=== PATIENT | female | born 1990 | race American Indian/Alaskan Native ===

== ENCOUNTER 2016-08-05 00:25 | Inpatient (IN) | payer MEDICAID ==
--- NOTE | 2016-08-05 01:43 | History and Physical Report ---
History of Present Illness Date of examination: 08/05/16 Date of admission: 08/05/16 01:21 Chief complaint: Painful contractions History of present illness: 26-year-old at 38+5 weeks gestation presents in active labor, she has oral history of care with Dr. Navarrete. Patients history is inconsistent, she claims Dr. Navarrete no longer accepts Medicaid and he delivers at [place]. She however claims to still see him in clinic and was seen last week. Her uncle also claims she was asked by [facility] to present here as this is near her home. In triage, her blood pressure is elevated at 140s to 160s over 90's diastolic. She denies headache, scotomata or epigastric pain. She claims her blood pressures were completely normal during her care except for the last visit when he was elevated. 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 denies: smoking, alcohol abuse, prescription drug abuse, IV drug use - Obstetrical History Expected Date of Delivery: 08/14/16 Actual Gestation: 38 Week(s) 5 Day(s) : 1 Para: 0 Medications and Allergies Allergies Allergy/AdvReac Type Severity Reaction Status Date / Time No Known Allergies Allergy Verified 10/28/13 00:06 Home Medications Medication Instructions Recorded Confirmed Last Taken Type No Known Home Medications [No 10/28/13 10/28/13 Unknown History Reported Home Medications] Review of Systems Constitutional: no fever, no chills Eyes: no diplopia Cardiovascular: high blood pressure, no chest pain, no orthopnea, no palpitations, no rapid/irregular heart beat, no edema, no syncope, no dyspnea on exertion Respiratory: no shortness of breath, no dyspnea on exertion Gastrointestinal: abdominal pain, no nausea, no vomiting Genitourinary: no vaginal bleeding, no leakage of fluid - Vital Signs Vital signs: Vital Signs Temp BP 99.8 F H 162/112 08/05/16 00:50 08/05/16 00:50 Temp Pulse Resp BP Pulse Ox 99.8 F H 104 H 166/96 82 L 08/05/16 00:50 08/05/16 01:31 08/05/16 01:31 08/05/16 01:07 - Physical Exam Cardiovascular: Regular rate, Normal S1, Normal S2 Lungs: Positive: Clear to auscultation, Normal air movement Abdomen: Positive: normal appearance, soft. Negative: distention, tenderness, guarding, rigidity Genitourinary (Female): Positive: normal external genitalia Uterus: Positive: enlarged (EFW ~ 3500) Extremities: Positive: normal - Obstetrical FHR: category 1 Cervical Dilatation: 4 (per RN exam) Cervical Effacement Percentage: 90 station: -1 Results All other labs normal. Assessment and Plan A: 26-year-old at 38+5 in active labour -Elevated BP ?Pre-E -Cat 1 tracing P: -Admit -Antihypertensives -Magnesium per protocol -Routine labs -Epidural when necessary -GBS prophylaxis -?Obtain records from primary OBGYN -Expectant management for now - Patient Problems (1) 38 weeks gestation of Current Visit: Yes Status: Acute (2) Active labor at term Current Visit: Yes Status: Acute (3) Elevated blood pressure affecting in third trimester, antepartum Current Visit: Yes Status: Acute
[2016-08-05] MEDS ORDERED: BRETHINE SUB-Q PRN (01:49)
[2016-08-05] MEDS ORDERED: ePHEDrine SULFATE IV PRN ×2 (01:49→09:43)
[2016-08-05] MEDS ORDERED: ZOFRAN IV PRN ×2 (01:49→14:49)
[2016-08-05] MEDS ORDERED: BRETHINE IVP PRN (01:49)
[2016-08-05] MEDS ORDERED: POLYCILLIN/NS 2 GM/100 ML 100 ML IV ONE (01:49)
[2016-08-05] MEDS ORDERED: XYLOCAINE 2% INFILTRATI ONE (01:49)
[2016-08-05] MEDS ORDERED: SUBLIMAZE IV PRN (01:49)
[2016-08-05] MEDS ORDERED: MINERAL OIL PO PRN (01:49)
[2016-08-05] MEDS ORDERED: MAGNESIUM SULFATE 4GM/100ML 100 ML IV ONE (01:52)
[2016-08-05] MEDS ORDERED: APRESOLINE IV PRN (01:52)
[2016-08-05] MEDS ORDERED: NORMODYNE IV PRN (01:52)
[2016-08-05] MEDS ORDERED: MAGNESIUM SULFATE 40GM/1000ML 1,000 ML IV NR (02:00)
[2016-08-05] MEDS ORDERED: PITOCin/NS 20 UNIT/1000ML DRIP 1,000 ML IV SCH ×2 (02:00→15:00)
[2016-08-05] MEDS ORDERED: PITOCin/NS 30 UNIT/500ML 500 ML IV SCH (02:00)
[2016-08-05] MEDS ORDERED: LACTATED RINGERS 1,000 ML IV SCH ×2 (02:00)
[2016-08-05 04:27] LABS: Hematocrit 41.1 % (30.3-42.9); Hemoglobin 13.6 gm/dl (10.1-14.3); Mean Corpuscular HGB Conc 33 % (30-34); Mean Corpuscular Hemoglobin 32 pg (28-32); Mean Corpuscular Volume 96 fl (79-97); Platelet Count 136 K/mm3 (140-440); Red Blood Count 4.26 M/mm3 (3.65-5.03); Red Cell Distribution Width 13.9 % (13.2-15.2)
[2016-08-05] MEDS: NORMODYNE PO SCH ×2 (04:55→10:10)
[2016-08-05 05:12] LABS: Alanine Aminotransferase 41 units/L (7-56); Albumin 3.1 g/dL (3.9-5); Albumin/Globulin Ratio 0.9 %; Alkaline Phosphatase 204 units/L (35-129); Bilirubin,Total < 0.2 mg/dL (0.1-1.2); Blood Urea Nitrogen 12 mg/dL (7-17); Calcium 8.6 mg/dL (8.4-10.2); Carbon Dioxide 16 mmol/L (22-30); Chloride 102.5 mmol/L (98-107); Glucose 132 mg/dL (65-100); HIV-1 Antigen p24 Non React (Non React); HIVR-1/2 Ab Non React (Non React); Potassium 3.8 mmol/L (3.6-5.0); Sodium 134 mmol/L (137-145); Total Protein 6.5 g/dL (6.3-8.2)
[2016-08-05 05:22] LABS: Anion Gap 19 mmol/L; Bilirubin,Direct < 0.2 mg/dL (0-0.2)
[2016-08-05] MEDS: POLYCILLIN/NS 1 GM/50 ML 50 ML IV SCH ×2 (07:26→11:13)
[2016-08-05 07:54] LABS: Urine Drugs of Abuse Note Disclamer
[2016-08-05 08:32] LABS: Bilirubin,Urine NEG (Negative); Blood,Urine NEG (Negative); Ketones,Urine NEG (Negative); Leukocyte Esterase,Urine NEG (Negative); Mucus,Urine FEW /HPF; Nitrite,Urine NEG (Negative); Protein,Urine <15 mg/dL mg/dL (Negative); Urobilinogen,Urine < 2.0 mg/dL (<2.0)
[2016-08-05] MEDS ORDERED: ePHEDrine SULFATE ONE (08:46)
--- NOTE | 2016-08-05 09:29 | Progress Note ---
Assessment and Plan A: 26-year-old at 38+5 in active labour -Elevated BP ?Pre-E -Cat 1 tracing P: -Start Pitocin -Repeat mag level at ~ 12, consider bolus if subtherapeutic -Continue present care -Anticipate - Patient Problems (1) 38 weeks gestation of Current Visit: Yes Status: Acute (2) Active labor at term Current Visit: Yes Status: Acute (3) Elevated blood pressure affecting in third trimester, antepartum Current Visit: Yes Status: Acute Subjective - Subjective Date of service: 08/05/16 Principal diagnosis: at 38+6 wks, Elevated BP, Active labour Interval history: no new issues, wants epidural Blood Pressure has remained less than severe levels. Mag level at 3.5, but was obtained ~ 2 hours after bolus No Signs or symptoms of preeclampsia Patient reports: new complaints, movement normal, contractions, no loss of fluid, no vaginal bleeding Objective - Vital Signs Vital Signs: Vital Signs - 12hr 08/05/16 08/05/16 08/05/16 00:50 01:00 01:01 Temperature 99.8 F H Pulse Rate 97 H 104 H Respiratory Rate Blood Pressure 148/99 Blood Pressure 162/112 [Left Arm] O2 Sat by Pulse 99 Oximetry 08/05/16 08/05/16 08/05/16 01:05 01:07 01:12 Temperature Pulse Rate 104 H 58 L 93 H Respiratory Rate Blood Pressure 157/93 Blood Pressure [Left Arm] O2 Sat by Pulse 99 82 L Oximetry 08/05/16 08/05/16 08/05/16 01:21 01:31 01:42 Temperature Pulse Rate 96 H 104 H 101 H Respiratory Rate Blood Pressure 150/87 166/96 144/89 Blood Pressure [Left Arm] O2 Sat by Pulse Oximetry 08/05/16 08/05/16 08/05/16 02:23 02:24 02:27 Temperature Pulse Rate 101 H 99 H 98 H Respiratory Rate Blood Pressure 145/94 Blood Pressure [Left Arm] O2 Sat by Pulse 99 98 Oximetry 08/05/16 08/05/16 08/05/16 02:33 02:37 02:43 Temperature Pulse Rate 97 H 97 H 97 H Respiratory Rate Blood Pressure Blood Pressure [Left Arm] O2 Sat by Pulse 98 96 99 Oximetry 08/05/16 08/05/16 08/05/16 02:47 02:50 02:53 Temperature 97.7 F Pulse Rate 69 93 H Respiratory Rate Blood Pressure Blood Pressure [Left Arm] O2 Sat by Pulse 98 97 Oximetry 08/05/16 08/05/16 08/05/16 04:15 04:46 05:08 Temperature Pulse Rate 92 H 98 H 86 Respiratory Rate Blood Pressure 149/86 139/94 Blood Pressure [Left Arm] O2 Sat by Pulse 99 Oximetry 08/05/16 08/05/16 08/05/16 05:13 05:15 05:18 Temperature Pulse Rate 94 H 92 H 97 H Respiratory Rate Blood Pressure 141/89 Blood Pressure [Left Arm] O2 Sat by Pulse 98 98 Oximetry 08/05/16 08/05/16 08/05/16 05:23 05:28 05:33 Temperature Pulse Rate 85 88 89 Respiratory Rate Blood Pressure Blood Pressure [Left Arm] O2 Sat by Pulse 97 97 97 Oximetry 08/05/16 08/05/16 08/05/16 05:38 05:43 05:46 Temperature Pulse Rate 85 87 82 Respiratory Rate Blood Pressure 140/84 Blood Pressure [Left Arm] O2 Sat by Pulse 99 100 Oximetry 08/05/16 08/05/16 08/05/16 05:48 05:53 05:58 Temperature Pulse Rate 82 81 95 H Respiratory Rate Blood Pressure Blood Pressure [Left Arm] O2 Sat by Pulse 100 100 100 Oximetry 08/05/16 08/05/16 08/05/16 06:03 06:08 06:13 Temperature Pulse Rate 102 H 82 91 H Respiratory Rate Blood Pressure Blood Pressure [Left Arm] O2 Sat by Pulse 100 99 97 Oximetry 08/05/16 08/05/16 08/05/16 06:15 06:18 06:23 Temperature Pulse Rate 81 76 80 Respiratory Rate Blood Pressure 140/84 Blood Pressure [Left Arm] O2 Sat by Pulse 100 98 Oximetry 08/05/16 08/05/16 08/05/16 06:28 06:33 06:38 Temperature Pulse Rate 80 74 82 Respiratory Rate Blood Pressure Blood Pressure [Left Arm] O2 Sat by Pulse 100 98 100 Oximetry 08/05/16 08/05/16 08/05/16 06:43 06:45 06:48 Temperature Pulse Rate 78 83 91 H Respiratory Rate Blood Pressure 135/75 Blood Pressure [Left Arm] O2 Sat by Pulse 98 97 Oximetry 08/05/16 08/05/16 08/05/16 06:50 06:53 06:58 Temperature Pulse Rate 33 L 80 82 Respiratory Rate Blood Pressure Blood Pressure [Left Arm] O2 Sat by Pulse 81 L 98 98 Oximetry 08/05/16 08/05/16 08/05/16 07:02 07:03 07:08 Temperature Pulse Rate 85 83 89 Respiratory Rate Blood Pressure Blood Pressure [Left Arm] O2 Sat by Pulse 93 95 97 Oximetry 08/05/16 08/05/16 08/05/16 07:13 07:14 07:15 Temperature 97.2 F L Pulse Rate 88 89 Respiratory 16 Rate Blood Pressure Blood Pressure [Left Arm] O2 Sat by Pulse 98 90 Oximetry 08/05/16 08/05/16 08/05/16 07:16 07:19 07:20 Temperature Pulse Rate 91 H 81 83 Respiratory Rate Blood Pressure 173/105 145/91 Blood Pressure [Left Arm] O2 Sat by Pulse 100 Oximetry 08/05/16 08/05/16 08/05/16 07:24 07:29 07:34 Temperature Pulse Rate 87 84 83 Respiratory Rate Blood Pressure Blood Pressure [Left Arm] O2 Sat by Pulse 100 100 100 Oximetry 08/05/16 08/05/16 08/05/16 07:39 07:44 07:45 Temperature Pulse Rate 86 87 84 Respiratory Rate Blood Pressure 140/88 Blood Pressure [Left Arm] O2 Sat by Pulse 100 100 Oximetry 08/05/16 08/05/16 08/05/16 07:49 07:54 07:59 Temperature Pulse Rate 80 85 85 Respiratory Rate Blood Pressure Blood Pressure [Left Arm] O2 Sat by Pulse 100 100 100 Oximetry 08/05/16 08/05/16 08/05/16 08:04 08:09 08:14 Temperature Pulse Rate 84 82 91 H Respiratory Rate Blood Pressure Blood Pressure [Left Arm] O2 Sat by Pulse 100 100 100 Oximetry 08/05/16 08/05/16 08/05/16 08:15 08:19 08:24 Temperature Pulse Rate 87 84 81 Respiratory Rate Blood Pressure 145/91 Blood Pressure [Left Arm] O2 Sat by Pulse 100 100 Oximetry 08/05/16 08/05/16 08/05/16 08:28 08:29 08:33 Temperature Pulse Rate 68 Respiratory Rate Blood Pressure Blood Pressure [Left Arm] O2 Sat by Pulse 85 90 79 L Oximetry 08/05/16 08/05/16 08/05/16 08:34 08:39 08:45 Temperature Pulse Rate 90 61 87 Respiratory Rate Blood Pressure 149/99 Blood Pressure [Left Arm] O2 Sat by Pulse 84 95 Oximetry 08/05/16 08/05/16 08/05/16 08:55 09:00 09:05 Temperature Pulse Rate 87 102 H 87 Respiratory Rate Blood Pressure 167/95 Blood Pressure [Left Arm] O2 Sat by Pulse 100 100 100 Oximetry 08/05/16 08/05/16 08/05/16 09:06 09:08 09:10 Temperature Pulse Rate 89 85 87 Respiratory Rate Blood Pressure 167/95 150/95 150/94 Blood Pressure [Left Arm] O2 Sat by Pulse 100 Oximetry 08/05/16 08/05/16 08/05/16 09:11 09:14 09:15 Temperature Pulse Rate 81 81 84 Respiratory Rate Blood Pressure 149/93 Blood Pressure [Left Arm] O2 Sat by Pulse 75 L 100 Oximetry 08/05/16 08/05/16 08/05/16 09:16 09:18 09:20 Temperature Pulse Rate 88 81 86 Respiratory Rate Blood Pressure 143/90 148/90 144/89 Blood Pressure [Left Arm] O2 Sat by Pulse 100 Oximetry 08/05/16 09:25 Temperature Pulse Rate 90 Respiratory Rate Blood Pressure Blood Pressure [Left Arm] O2 Sat by Pulse 100 Oximetry - Exam FHR: category 1 Cervical Dilatation: 4 (per RN) - Labs Labs: Abnormal Labs 08/05/16 08/05/16 08/05/16 03:00 03:00 06:48 Plt Count 136 L Sodium 134 L Carbon Dioxide 16 L Creatinine 0.4 L Glucose 132 H Magnesium 3.5 H AST 44 H Alkaline Phosphatase 204 H Albumin 3.1 L Laboratory Results - last 24 hr 08/05/16 08/05/16 08/05/16 01:52 03:00 03:00 WBC 9.0 RBC 4.26 Hgb 13.6 Hct 41.1 MCV 96 MCH 32 MCHC 33 RDW 13.9 Plt Count 136 L Sodium Potassium Chloride Carbon Dioxide Anion Gap BUN Creatinine Estimated GFR BUN/Creatinine Ratio Glucose Calcium Magnesium Total Bilirubin Direct Bilirubin Indirect Bilirubin AST ALT Alkaline Phosphatase Total Protein Albumin Albumin/Globulin Ratio Urine Color Urine Turbidity Urine pH Ur Specific [place] Urine Protein Urine Glucose (UA) Urine Ketones Urine Blood Urine Nitrite Urine Bilirubin Urine Urobilinogen Ur Leukocyte Esterase Urine WBC (Auto) Urine RBC (Auto) U Epithel Cells (Auto) Urine Mucus Urine Opiates Screen Presumptive negative Urine Methadone Screen Presumptive negative Ur Barbiturates Screen Presumptive negative Ur Phencyclidine Scrn Presumptive negative Ur Amphetamines Screen Presumptive negative U Benzodiazepines Scrn Presumptive negative Urine Cocaine Screen Presumptive negative U Marijuana (THC) Screen Presumptive negative Drugs of Abuse Note Disclamer Hep Bs Antigen Hepatitis C Antibody HIV 1&2 Antibody Rapid HIV P24 Antigen Rubella IgG Antibody Blood Type O POSITIVE Antibody Screen Negative 08/05/16 08/05/16 08/05/16 03:00 03:00 03:00 WBC RBC Hgb Hct MCV MCH MCHC RDW Plt Count Sodium 134 L Potassium 3.8 Chloride 102.5 Carbon Dioxide 16 L Anion Gap 19 BUN 12 Creatinine 0.4 L Estimated GFR > 60 BUN/Creatinine Ratio 30.00 Glucose 132 H Calcium 8.6 Magnesium Total Bilirubin < 0.2 Direct Bilirubin < 0.2 Indirect Bilirubin 0.0 AST 44 H ALT 41 Alkaline Phosphatase 204 H Total Protein 6.5 Albumin 3.1 L Albumin/Globulin Ratio 0.9 Urine Color Urine Turbidity Urine pH Ur Specific [place] Urine Protein Urine Glucose (UA) Urine Ketones Urine Blood Urine Nitrite Urine Bilirubin Urine Urobilinogen Ur Leukocyte Esterase Urine WBC (Auto) Urine RBC (Auto) U Epithel Cells (Auto) Urine Mucus Urine Opiates Screen Urine Methadone Screen Ur Barbiturates Screen Ur Phencyclidine Scrn Ur Amphetamines Screen U Benzodiazepines Scrn Urine Cocaine Screen U Marijuana (THC) Screen Drugs of Abuse Note Hep Bs Antigen Non-reactive Hepatitis C Antibody Non-reactive HIV 1&2 Antibody Rapid HIV P24 Antigen Rubella IgG Antibody Immune Blood Type Antibody Screen 08/05/16 08/05/16 08/05/16 03:00 06:48 07:30 WBC RBC Hgb Hct MCV MCH MCHC RDW Plt Count Sodium Potassium Chloride Carbon Dioxide Anion Gap BUN Creatinine Estimated GFR BUN/Creatinine Ratio Glucose Calcium Magnesium 3.5 H Total Bilirubin Direct Bilirubin Indirect Bilirubin AST ALT Alkaline Phosphatase Total Protein Albumin Albumin/Globulin Ratio Urine Color Yellow Urine Turbidity Clear Urine pH 5.0 Ur Specific [place] 1.029 Urine Protein <15 mg/dl Urine Glucose (UA) Neg Urine Ketones Neg Urine Blood Neg Urine Nitrite Neg Urine Bilirubin Neg Urine Urobilinogen < 2.0 Ur Leukocyte Esterase Neg Urine WBC (Auto) 1.0 Urine RBC (Auto) 1.0 U Epithel Cells (Auto) 1.0 Urine Mucus Few Urine Opiates Screen Urine Methadone Screen Ur Barbiturates Screen Ur Phencyclidine Scrn Ur Amphetamines Screen U Benzodiazepines Scrn Urine Cocaine Screen U Marijuana (THC) Screen Drugs of Abuse Note Hep Bs Antigen Hepatitis C Antibody HIV 1&2 Antibody Rapid Non react HIV P24 Antigen Non react Rubella IgG Antibody Blood Type Antibody Screen
[2016-08-05] MEDS ORDERED: fentaNYL-BUPIV 2 MCG/ML-0.125% 100 ML EPIDURAL ONE (09:38)
[2016-08-05] MEDS ORDERED: NARCAN 2 MG/2 ML IV PRN (09:43)
--- NOTE | 2016-08-05 09:45 | Anesthesia Consultation ---
Anesthesia Consult and Med Hx Date of service: 08/05/16 - Airway Anesthetic Teeth Evaluation: Good ROM Head & Neck: Adequate Mental/Hyoid Distance: Adequate Intubation Access Assessment: Probably Good - Pre-Operative Health Status ASA Pre-Surgery Classification: ASA3, Emergency Proposed Anesthetic Plan: Epidural, Spinal - Pre-Anesthesia Comment Pre-Anesthesia Comments: PIH - Pulmonary Hx Asthma: No - Cardiovascular System Hx Hypertension: No (PIH on mag) - Central Nervous System Hx Seizures: No Hx Psychiatric Problems: No - Endocrine Hx Renal Disease: No Hx Hypothyroidism: No Hx Hyperthyroidism: No - Hematic Hx Anemia: No Hx Sickle Cell Disease: No - Other Systems Hx Alcohol Use: No Hx Substance Use: No
[2016-08-05] MEDS ORDERED: fentaNYL-BUPIV 2 MCG/ML-0.125% 100 ML EPIDURAL SCH (10:00)
[2016-08-05] MEDS ORDERED: TYLENOL PO ONE (10:02)
--- NOTE | 2016-08-05 12:15 | Progress Note ---
Assessment and Plan A: 26-year-old at 38+5 in active labour -Elevated BP ?Pre-E -Cat 1 tracing P: -Continue present care -Anticipate - Patient Problems (1) 38 weeks gestation of Current Visit: Yes Status: Acute (2) Active labor at term Current Visit: Yes Status: Acute (3) Elevated blood pressure affecting in third trimester, antepartum Current Visit: Yes Status: Acute Subjective - Subjective Date of service: 08/05/16 Principal diagnosis: at 38+6 wks, Elevated BP, Active labour Interval history: Presently on Pit @ 12 mu/min Having occasional early like variable decels +mod variability Patient reports: new complaints, loss of fluid, movement normal, contractions, no vaginal bleeding Objective - Vital Signs Vital Signs: Vital Signs - 12hr 08/05/16 08/05/16 08/05/16 00:50 01:00 01:01 Temperature 99.8 F H Pulse Rate 97 H 104 H Respiratory Rate Blood Pressure 148/99 Blood Pressure 162/112 [Left Arm] O2 Sat by Pulse 99 Oximetry 08/05/16 08/05/16 08/05/16 01:05 01:07 01:12 Temperature Pulse Rate 104 H 58 L 93 H Respiratory Rate Blood Pressure 157/93 Blood Pressure [Left Arm] O2 Sat by Pulse 99 82 L Oximetry 08/05/16 08/05/16 08/05/16 01:21 01:31 01:42 Temperature Pulse Rate 96 H 104 H 101 H Respiratory Rate Blood Pressure 150/87 166/96 144/89 Blood Pressure [Left Arm] O2 Sat by Pulse Oximetry 08/05/16 08/05/16 08/05/16 02:23 02:24 02:27 Temperature Pulse Rate 101 H 99 H 98 H Respiratory Rate Blood Pressure 145/94 Blood Pressure [Left Arm] O2 Sat by Pulse 99 98 Oximetry 08/05/16 08/05/16 08/05/16 02:33 02:37 02:43 Temperature Pulse Rate 97 H 97 H 97 H Respiratory Rate Blood Pressure Blood Pressure [Left Arm] O2 Sat by Pulse 98 96 99 Oximetry 08/05/16 08/05/16 08/05/16 02:47 02:50 02:53 Temperature 97.7 F Pulse Rate 69 93 H Respiratory Rate Blood Pressure Blood Pressure [Left Arm] O2 Sat by Pulse 98 97 Oximetry 08/05/16 08/05/16 08/05/16 04:15 04:46 05:08 Temperature Pulse Rate 92 H 98 H 86 Respiratory Rate Blood Pressure 149/86 139/94 Blood Pressure [Left Arm] O2 Sat by Pulse 99 Oximetry 08/05/16 08/05/16 08/05/16 05:13 05:15 05:18 Temperature Pulse Rate 94 H 92 H 97 H Respiratory Rate Blood Pressure 141/89 Blood Pressure [Left Arm] O2 Sat by Pulse 98 98 Oximetry 08/05/16 08/05/16 08/05/16 05:23 05:28 05:33 Temperature Pulse Rate 85 88 89 Respiratory Rate Blood Pressure Blood Pressure [Left Arm] O2 Sat by Pulse 97 97 97 Oximetry 08/05/16 08/05/16 08/05/16 05:38 05:43 05:46 Temperature Pulse Rate 85 87 82 Respiratory Rate Blood Pressure 140/84 Blood Pressure [Left Arm] O2 Sat by Pulse 99 100 Oximetry 08/05/16 08/05/16 08/05/16 05:48 05:53 05:58 Temperature Pulse Rate 82 81 95 H Respiratory Rate Blood Pressure Blood Pressure [Left Arm] O2 Sat by Pulse 100 100 100 Oximetry 08/05/16 08/05/16 08/05/16 06:03 06:08 06:13 Temperature Pulse Rate 102 H 82 91 H Respiratory Rate Blood Pressure Blood Pressure [Left Arm] O2 Sat by Pulse 100 99 97 Oximetry 08/05/16 08/05/16 08/05/16 06:15 06:18 06:23 Temperature Pulse Rate 81 76 80 Respiratory Rate Blood Pressure 140/84 Blood Pressure [Left Arm] O2 Sat by Pulse 100 98 Oximetry 08/05/16 08/05/16 08/05/16 06:28 06:33 06:38 Temperature Pulse Rate 80 74 82 Respiratory Rate Blood Pressure Blood Pressure [Left Arm] O2 Sat by Pulse 100 98 100 Oximetry 08/05/16 08/05/16 08/05/16 06:43 06:45 06:48 Temperature Pulse Rate 78 83 91 H Respiratory Rate Blood Pressure 135/75 Blood Pressure [Left Arm] O2 Sat by Pulse 98 97 Oximetry 08/05/16 08/05/16 08/05/16 06:50 06:53 06:58 Temperature Pulse Rate 33 L 80 82 Respiratory Rate Blood Pressure Blood Pressure [Left Arm] O2 Sat by Pulse 81 L 98 98 Oximetry 08/05/16 08/05/16 08/05/16 07:02 07:03 07:08 Temperature Pulse Rate 85 83 89 Respiratory Rate Blood Pressure Blood Pressure [Left Arm] O2 Sat by Pulse 93 95 97 Oximetry 08/05/16 08/05/16 08/05/16 07:13 07:14 07:15 Temperature 97.2 F L Pulse Rate 88 89 Respiratory 16 Rate Blood Pressure Blood Pressure [Left Arm] O2 Sat by Pulse 98 90 Oximetry 08/05/16 08/05/16 08/05/16 07:16 07:19 07:20 Temperature Pulse Rate 91 H 81 83 Respiratory Rate Blood Pressure 173/105 145/91 Blood Pressure [Left Arm] O2 Sat by Pulse 100 Oximetry 08/05/16 08/05/16 08/05/16 07:24 07:29 07:34 Temperature Pulse Rate 87 84 83 Respiratory Rate Blood Pressure Blood Pressure [Left Arm] O2 Sat by Pulse 100 100 100 Oximetry 08/05/16 08/05/16 08/05/16 07:39 07:44 07:45 Temperature Pulse Rate 86 87 84 Respiratory Rate Blood Pressure 140/88 Blood Pressure [Left Arm] O2 Sat by Pulse 100 100 Oximetry 08/05/16 08/05/16 08/05/16 07:49 07:54 07:59 Temperature Pulse Rate 80 85 85 Respiratory Rate Blood Pressure Blood Pressure [Left Arm] O2 Sat by Pulse 100 100 100 Oximetry 08/05/16 08/05/16 08/05/16 08:04 08:09 08:14 Temperature Pulse Rate 84 82 91 H Respiratory Rate Blood Pressure Blood Pressure [Left Arm] O2 Sat by Pulse 100 100 100 Oximetry 08/05/16 08/05/16 08/05/16 08:15 08:19 08:24 Temperature Pulse Rate 87 84 81 Respiratory Rate Blood Pressure 145/91 Blood Pressure [Left Arm] O2 Sat by Pulse 100 100 Oximetry 08/05/16 08/05/16 08/05/16 08:28 08:29 08:33 Temperature Pulse Rate 68 Respiratory Rate Blood Pressure Blood Pressure [Left Arm] O2 Sat by Pulse 85 90 79 L Oximetry 08/05/16 08/05/16 08/05/16 08:34 08:39 08:45 Temperature Pulse Rate 90 61 87 Respiratory Rate Blood Pressure 149/99 Blood Pressure [Left Arm] O2 Sat by Pulse 84 95 Oximetry 08/05/16 08/05/16 08/05/16 08:55 09:00 09:05 Temperature Pulse Rate 87 102 H 87 Respiratory Rate Blood Pressure 167/95 Blood Pressure [Left Arm] O2 Sat by Pulse 100 100 100 Oximetry 08/05/16 08/05/16 08/05/16 09:06 09:08 09:10 Temperature Pulse Rate 89 85 87 Respiratory Rate Blood Pressure 167/95 150/95 150/94 Blood Pressure [Left Arm] O2 Sat by Pulse 100 Oximetry 08/05/16 08/05/16 08/05/16 09:11 09:14 09:15 Temperature Pulse Rate 81 81 84 Respiratory Rate Blood Pressure 149/93 Blood Pressure [Left Arm] O2 Sat by Pulse 75 L 100 Oximetry 08/05/16 08/05/16 08/05/16 09:16 09:18 09:20 Temperature Pulse Rate 88 81 86 Respiratory Rate Blood Pressure 143/90 148/90 144/89 Blood Pressure [Left Arm] O2 Sat by Pulse 100 Oximetry 08/05/16 08/05/16 08/05/16 09:25 09:30 09:35 Temperature Pulse Rate 90 89 82 Respiratory Rate Blood Pressure Blood Pressure [Left Arm] O2 Sat by Pulse 100 100 100 Oximetry 08/05/16 08/05/16 08/05/16 09:36 09:40 09:45 Temperature Pulse Rate 86 86 91 H Respiratory Rate Blood Pressure 142/90 Blood Pressure [Left Arm] O2 Sat by Pulse 98 100 Oximetry 08/05/16 08/05/16 08/05/16 09:50 09:51 09:55 Temperature Pulse Rate 89 92 H 88 Respiratory 16 Rate Blood Pressure 144/89 144/89 Blood Pressure [Left Arm] O2 Sat by Pulse 100 100 Oximetry 08/05/16 08/05/16 08/05/16 10:00 10:05 10:06 Temperature Pulse Rate 87 84 87 Respiratory Rate Blood Pressure 148/85 Blood Pressure [Left Arm] O2 Sat by Pulse 100 100 Oximetry 08/05/16 08/05/16 08/05/16 10:10 10:17 10:21 Temperature Pulse Rate 85 90 88 Respiratory Rate Blood Pressure 148/85 146/92 Blood Pressure [Left Arm] O2 Sat by Pulse 100 100 Oximetry 08/05/16 08/05/16 08/05/16 10:22 10:27 10:28 Temperature Pulse Rate 94 H 94 H 107 H Respiratory Rate Blood Pressure Blood Pressure [Left Arm] O2 Sat by Pulse 99 100 58 L Oximetry 08/05/16 08/05/16 08/05/16 10:37 10:51 11:04 Temperature Pulse Rate 91 H 87 87 Respiratory Rate Blood Pressure 140/85 156/95 Blood Pressure [Left Arm] O2 Sat by Pulse 100 Oximetry 08/05/16 08/05/16 08/05/16 11:06 11:09 11:14 Temperature Pulse Rate 88 91 H 94 H Respiratory Rate Blood Pressure 142/85 Blood Pressure [Left Arm] O2 Sat by Pulse 100 100 Oximetry 08/05/16 08/05/16 08/05/16 11:19 11:22 11:24 Temperature Pulse Rate 92 H 92 H 95 H Respiratory Rate Blood Pressure 141/86 Blood Pressure [Left Arm] O2 Sat by Pulse 99 99 Oximetry 08/05/16 08/05/16 08/05/16 11:29 11:34 11:37 Temperature Pulse Rate 101 H 95 H 88 Respiratory Rate Blood Pressure 139/87 Blood Pressure [Left Arm] O2 Sat by Pulse 100 99 Oximetry 08/05/16 08/05/16 08/05/16 11:39 11:44 11:49 Temperature Pulse Rate 87 92 H 94 H Respiratory Rate Blood Pressure Blood Pressure [Left Arm] O2 Sat by Pulse 100 100 100 Oximetry 08/05/16 08/05/16 08/05/16 11:51 11:54 11:59 Temperature Pulse Rate 92 H 84 87 Respiratory Rate Blood Pressure 139/85 Blood Pressure [Left Arm] O2 Sat by Pulse 100 100 Oximetry 08/05/16 08/05/16 08/05/16 12:04 12:06 12:08 Temperature Pulse Rate 83 93 H 100 H Respiratory Rate Blood Pressure 144/83 Blood Pressure [Left Arm] O2 Sat by Pulse 100 70 L Oximetry - Exam FHR: category 2 Cervical Dilatation: 8.5 station: 0 - Labs Labs: Abnormal Labs 08/05/16 08/05/16 08/05/16 03:00 03:00 06:48 Plt Count 136 L Sodium 134 L Carbon Dioxide 16 L Creatinine 0.4 L Glucose 132 H Magnesium 3.5 H AST 44 H Alkaline Phosphatase 204 H Albumin 3.1 L Laboratory Results - last 24 hr 08/05/16 08/05/16 08/05/16 01:52 03:00 03:00 WBC 9.0 RBC 4.26 Hgb 13.6 Hct 41.1 MCV 96 MCH 32 MCHC 33 RDW 13.9 Plt Count 136 L Sodium Potassium Chloride Carbon Dioxide Anion Gap BUN Creatinine Estimated GFR BUN/Creatinine Ratio Glucose Calcium Magnesium Total Bilirubin Direct Bilirubin Indirect Bilirubin AST ALT Alkaline Phosphatase Total Protein Albumin Albumin/Globulin Ratio Urine Color Urine Turbidity Urine pH Ur Specific [place] Urine Protein Urine Glucose (UA) Urine Ketones Urine Blood Urine Nitrite Urine Bilirubin Urine Urobilinogen Ur Leukocyte Esterase Urine WBC (Auto) Urine RBC (Auto) U Epithel Cells (Auto) Urine Mucus Urine Opiates Screen Presumptive negative Urine Methadone Screen Presumptive negative Ur Barbiturates Screen Presumptive negative Ur Phencyclidine Scrn Presumptive negative Ur Amphetamines Screen Presumptive negative U Benzodiazepines Scrn Presumptive negative Urine Cocaine Screen Presumptive negative U Marijuana (THC) Screen Presumptive negative Drugs of Abuse Note Disclamer RPR Hep Bs Antigen Hepatitis C Antibody HIV 1&2 Antibody Rapid HIV P24 Antigen Rubella IgG Antibody Blood Type O POSITIVE Antibody Screen Negative 08/05/16 08/05/16 08/05/16 03:00 03:00 03:00 WBC RBC Hgb Hct MCV MCH MCHC RDW Plt Count Sodium 134 L Potassium 3.8 Chloride 102.5 Carbon Dioxide 16 L Anion Gap 19 BUN 12 Creatinine 0.4 L Estimated GFR > 60 BUN/Creatinine Ratio 30.00 Glucose 132 H Calcium 8.6 Magnesium Total Bilirubin < 0.2 Direct Bilirubin < 0.2 Indirect Bilirubin 0.0 AST 44 H ALT 41 Alkaline Phosphatase 204 H Total Protein 6.5 Albumin 3.1 L Albumin/Globulin Ratio 0.9 Urine Color Urine Turbidity Urine pH Ur Specific [place] Urine Protein Urine Glucose (UA) Urine Ketones Urine Blood Urine Nitrite Urine Bilirubin Urine Urobilinogen Ur Leukocyte Esterase Urine WBC (Auto) Urine RBC (Auto) U Epithel Cells (Auto) Urine Mucus Urine Opiates Screen Urine Methadone Screen Ur Barbiturates Screen Ur Phencyclidine Scrn Ur Amphetamines Screen U Benzodiazepines Scrn Urine Cocaine Screen U Marijuana (THC) Screen Drugs of Abuse Note RPR Hep Bs Antigen Non-reactive Hepatitis C Antibody Non-reactive HIV 1&2 Antibody Rapid HIV P24 Antigen Rubella IgG Antibody Immune Blood Type Antibody Screen 08/05/16 08/05/16 08/05/16 03:00 03:00 06:48 WBC RBC Hgb Hct MCV MCH MCHC RDW Plt Count Sodium Potassium Chloride Carbon Dioxide Anion Gap BUN Creatinine Estimated GFR BUN/Creatinine Ratio Glucose Calcium Magnesium 3.5 H Total Bilirubin Direct Bilirubin Indirect Bilirubin AST ALT Alkaline Phosphatase Total Protein Albumin Albumin/Globulin Ratio Urine Color Urine Turbidity Urine pH Ur Specific [place] Urine Protein Urine Glucose (UA) Urine Ketones Urine Blood Urine Nitrite Urine Bilirubin Urine Urobilinogen Ur Leukocyte Esterase Urine WBC (Auto) Urine RBC (Auto) U Epithel Cells (Auto) Urine Mucus Urine Opiates Screen Urine Methadone Screen Ur Barbiturates Screen Ur Phencyclidine Scrn Ur Amphetamines Screen U Benzodiazepines Scrn Urine Cocaine Screen U Marijuana (THC) Screen Drugs of Abuse Note RPR Nonreactive Hep Bs Antigen Hepatitis C Antibody HIV 1&2 Antibody Rapid Non react HIV P24 Antigen Non react Rubella IgG Antibody Blood Type Antibody Screen 08/05/16 07:30 WBC RBC Hgb Hct MCV MCH MCHC RDW Plt Count Sodium Potassium Chloride Carbon Dioxide Anion Gap BUN Creatinine Estimated GFR BUN/Creatinine Ratio Glucose Calcium Magnesium Total Bilirubin Direct Bilirubin Indirect Bilirubin AST ALT Alkaline Phosphatase Total Protein Albumin Albumin/Globulin Ratio Urine Color Yellow Urine Turbidity Clear Urine pH 5.0 Ur Specific [place] 1.029 Urine Protein <15 mg/dl Urine Glucose (UA) Neg Urine Ketones Neg Urine Blood Neg Urine Nitrite Neg Urine Bilirubin Neg Urine Urobilinogen < 2.0 Ur Leukocyte Esterase Neg Urine WBC (Auto) 1.0 Urine RBC (Auto) 1.0 U Epithel Cells (Auto) 1.0 Urine Mucus Few Urine Opiates Screen Urine Methadone Screen Ur Barbiturates Screen Ur Phencyclidine Scrn Ur Amphetamines Screen U Benzodiazepines Scrn Urine Cocaine Screen U Marijuana (THC) Screen Drugs of Abuse Note RPR Hep Bs Antigen Hepatitis C Antibody HIV 1&2 Antibody Rapid HIV P24 Antigen Rubella IgG Antibody Blood Type Antibody Screen
[2016-08-05] MEDS ORDERED: DULCOLAX PR PRN (13:00)
[2016-08-05] MEDS ORDERED: METHERGINE IM ONE ×2 (14:28→14:59)
--- NOTE | 2016-08-05 14:48 | Procedure Note ---
OB Delivery Note - Delivery Date of Delivery: 08/05/16 Surgeon: YANA STEINER Estimated blood loss: 300cc - Vaginal Delivery presentation: vertex Delivery position: OA Intrapartum events: no care (Limited care), meconium, mult.variable deceleratio Delivery induction: none Delivery augmentation: pitocin Delivery monitor: external FHT, external uterine Route of delivery: Delivery placenta: spontaneous Delivery cord: 3 umbilical vessels Episiotomy: none Delivery laceration: 3rd degree (midline perineal), vaginal side wall, other ( right fadia urethral) Delivery repair: vicryl Anesthesia: epidural - Infant A at 1 minute: 8 at 5 minutes: 9 Gender: Female (Del @ 14:25, weight is 6#0 or 2734 gms)
[2016-08-05] MEDS ORDERED: PHENERGAN PO PRN (14:49)
[2016-08-05] MEDS ORDERED: TYLENOL PO PRN (14:49)
[2016-08-05] MEDS ORDERED: PHENERGAN PR PRN (14:49)
[2016-08-05] MEDS ORDERED: DERMOPLAST TP PRN (14:49)
[2016-08-05] MEDS ORDERED: BENADRYL PO PRN (14:49)
[2016-08-05] MEDS ORDERED: TUCKS PAD TP PRN (14:49)
[2016-08-05] MEDS ORDERED: LANSINOH TP PRN (14:49)
[2016-08-05] MEDS ORDERED: NORCO 5/325 PO PRN (14:49)
[2016-08-05] MEDS ORDERED: SODIUM CHLORIDE FLUSH SYRINGE 10 ML IV NR (15:00)
[2016-08-05] MEDS: MOTRIN PO SCH (15:55)
[2016-08-05] MEDS ORDERED: MILK OF MAGNESIA PO PRN (22:00)
[2016-08-06] MEDS: SENOKOT S PO SCH ×2 (03:01→16:30)
[2016-08-06] MEDS: NORMODYNE PO SCH ×3 (03:01→22:36)
[2016-08-06] MEDS: MOTRIN PO SCH ×3 (03:02→17:47)
[2016-08-06 06:03] LABS: Hematocrit 36.5 % (30.3-42.9); Hemoglobin 12.4 gm/dl (10.1-14.3)
--- NOTE | 2016-08-06 07:07 | Progress Note ---
Assessment and Plan - Patient Problems (1) (normal spontaneous vaginal delivery) Diagnosis Date: 08/06/16 Current Visit: Yes Status: Acute Plan to address problem: A: S/P - PPD #1 PIH - s/p magnesium sulfate x 24hrs and currently on Labetolol 200mg BID P: Probable May go home tomorrow if remains stable. Subjective - Subjective Date of service: 08/06/16 Principal diagnosis: s/p - PPD #1 Interval history: Pt is feeling well without complaints. Bleeding improved. Magnesium sulfate d/c 'd and currently on Labetolol 200mg BID. Patient reports: appetite normal, voiding normally, pain well controlled, flatus , ambulating normally [place]: doing well, nursing well, bottle feeding Objective - Vital Signs Latest vital signs: Vital Signs Temp Pulse Pulse Resp BP BP Pulse Ox 08/06/16 06:03 98.9 F 84 20 119/56 08/06/16 03:51 97.9 F 108 H 18 123/67 08/06/16 02:20 98.3 F 93 H 20 145/76 08/06/16 00:50 98.3 F 85 20 139/85 08/06/16 00:04 98.2 F 81 20 140/86 08/05/16 21:39 97.6 F 85 20 141/77 08/05/16 20:35 97.8 F 88 22 149/78 08/05/16 18:00 98.4 F 94 H 20 148/75 08/05/16 16:15 99.2 F 94 H 20 153/70 08/05/16 15:51 91 H 151/89 08/05/16 15:48 94 H 97 08/05/16 15:43 90 97 08/05/16 15:41 98.0 F 16 08/05/16 15:38 92 H 97 08/05/16 15:36 91 H 145/85 08/05/16 15:33 89 98 08/05/16 15:28 92 H 97 08/05/16 15:23 89 99 08/05/16 15:21 96 H 153/85 08/05/16 15:18 86 99 08/05/16 15:13 90 98 08/05/16 15:08 94 H 99 08/05/16 15:06 93 H 149/90 08/05/16 15:03 93 H 99 08/05/16 14:58 90 98 08/05/16 14:53 94 H 99 08/05/16 14:51 94 H 141/78 08/05/16 14:47 94 H 96 08/05/16 14:38 99.1 F 08/05/16 14:36 104 H 149/78 08/05/16 14:35 16 08/05/16 14:06 90 146/66 08/05/16 13:51 85 145/87 08/05/16 13:37 93 H 145/93 08/05/16 13:31 18 08/05/16 13:30 87 143/92 08/05/16 13:15 98.6 F 16 08/05/16 13:14 93 H 100 08/05/16 13:09 81 100 08/05/16 13:06 86 149/95 08/05/16 13:04 88 100 08/05/16 12:59 86 100 08/05/16 12:54 86 100 08/05/16 12:51 86 147/96 08/05/16 12:49 95 H 100 08/05/16 12:44 85 100 08/05/16 12:39 83 100 08/05/16 12:36 83 155/94 08/05/16 12:34 88 100 08/05/16 12:29 91 H 100 08/05/16 12:24 99 H 100 08/05/16 12:21 93 H 156/101 08/05/16 12:19 90 100 08/05/16 12:14 88 100 08/05/16 12:08 100 H 70 L 08/05/16 12:06 93 H 144/83 08/05/16 12:04 83 100 08/05/16 11:59 87 100 08/05/16 11:54 84 100 08/05/16 11:51 92 H 139/85 08/05/16 11:49 94 H 100 08/05/16 11:44 92 H 100 08/05/16 11:39 87 100 08/05/16 11:37 88 139/87 08/05/16 11:34 95 H 99 08/05/16 11:29 101 H 100 08/05/16 11:24 95 H 99 08/05/16 11:22 92 H 141/86 08/05/16 11:19 92 H 99 08/05/16 11:14 94 H 100 08/05/16 11:09 91 H 100 08/05/16 11:06 88 142/85 08/05/16 11:04 87 100 08/05/16 10:51 87 156/95 08/05/16 10:37 91 H 140/85 08/05/16 10:28 107 H 58 L 08/05/16 10:27 94 H 100 08/05/16 10:22 94 H 99 08/05/16 10:21 88 146/92 08/05/16 10:17 90 100 08/05/16 10:10 85 148/85 100 08/05/16 10:06 87 148/85 08/05/16 10:05 84 100 08/05/16 10:00 87 100 08/05/16 09:55 88 16 144/89 100 08/05/16 09:51 92 H 144/89 08/05/16 09:50 89 100 08/05/16 09:45 91 H 100 08/05/16 09:40 86 98 08/05/16 09:36 86 142/90 08/05/16 09:35 82 100 08/05/16 09:30 89 100 08/05/16 09:25 90 100 08/05/16 09:20 86 144/89 100 08/05/16 09:18 81 148/90 08/05/16 09:16 88 143/90 08/05/16 09:15 84 100 08/05/16 09:14 81 149/93 08/05/16 09:11 81 75 L 08/05/16 09:10 87 150/94 100 08/05/16 09:08 85 150/95 08/05/16 09:06 89 167/95 08/05/16 09:05 87 167/95 100 08/05/16 09:00 102 H 100 08/05/16 08:55 87 100 08/05/16 08:45 87 149/99 08/05/16 08:39 61 95 08/05/16 08:34 90 84 08/05/16 08:33 79 L 08/05/16 08:29 90 08/05/16 08:28 68 85 08/05/16 08:24 81 100 08/05/16 08:19 84 100 08/05/16 08:15 87 145/91 08/05/16 08:14 91 H 100 08/05/16 08:09 82 100 08/05/16 08:04 84 100 08/05/16 07:59 85 100 08/05/16 07:54 85 100 08/05/16 07:49 80 100 08/05/16 07:45 84 140/88 08/05/16 07:44 87 100 08/05/16 07:39 86 100 08/05/16 07:34 83 100 08/05/16 07:29 84 100 08/05/16 07:24 87 100 08/05/16 07:20 83 145/91 08/05/16 07:19 81 100 08/05/16 07:16 91 H 173/105 08/05/16 07:15 97.2 F L 16 08/05/16 07:14 89 90 08/05/16 07:13 88 98 08/05/16 07:08 89 97 Intake and Output 08/05/16 08/06/16 08/06/16 22:59 06:59 14:59 Intake Total 1211.2 120 Output Total 1650 2602 Balance -438.8 -2482 Intake: IV 971.2 PITOCin/NS 20 UNIT/1000ML 150 DRIP 1,000 ML @ 125 mls/ hr IV DIRECT [facility] Rx#: [id number] Magnesium Sulfate 40Gm/ 741 1000ML 1,000 ml @ 2 GM/HR 50 mls/hr IV TITR NR Rx# :[id number] PITOCin/NS 20 UNIT/1000ML 80.2 DRIP 1,000 ML @ 250 mls/ hr IV TITR [facility] Rx#: [id number] Oral 240 120 Output: Urine 1650 2600 Indwelling Catheter 1650 2600 Pad Count 2 Other: Total, Intake Amount 240 120 Total, Output Amount 1000 300 Voiding Method Indwelling Catheter # Bowel Movements 0 - Exam Breasts: Present: deferred Cardiovascular: Present: Regular rate Abdomen: Present: normal appearance, soft Uterus: Present: normal, firm, fundal height below umbilicus Extremities: Present: normal - Labs Labs: Abnormal lab results 08/05/16 08/05/16 08/05/16 Range/Units 06:48 13:15 18:00 Magnesium 3.5 H 4.7 H 5.1 H (1.7-2.3) mg/dL 08/06/16 Range/Units 05:36 Magnesium 5.1 H (1.7-2.3) mg/dL Laboratory Tests 08/05/16 08/05/16 08/05/16 01:52 03:00 03:00 WBC 9.0 RBC 4.26 Hgb 13.6 Hct 41.1 MCV 96 MCH 32 MCHC 33 RDW 13.9 Plt Count 136 L Sodium Potassium Chloride Carbon Dioxide Anion Gap BUN Creatinine Estimated GFR BUN/Creatinine Ratio Glucose Calcium Magnesium Total Bilirubin Direct Bilirubin Indirect Bilirubin AST ALT Alkaline Phosphatase Total Protein Albumin Albumin/Globulin Ratio Urine Color Urine Turbidity Urine pH Ur Specific [place] Urine Protein Urine Glucose (UA) Urine Ketones Urine Blood Urine Nitrite Urine Bilirubin Urine Urobilinogen Ur Leukocyte Esterase Urine WBC (Auto) Urine RBC (Auto) U Epithel Cells (Auto) Urine Mucus Urine Opiates Screen Presumptive negative Urine Methadone Screen Presumptive negative Ur Barbiturates Screen Presumptive negative Ur Phencyclidine Scrn Presumptive negative Ur Amphetamines Screen Presumptive negative U Benzodiazepines Scrn Presumptive negative Urine Cocaine Screen Presumptive negative U Marijuana (THC) Screen Presumptive negative Drugs of Abuse Note Disclamer RPR Hep Bs Antigen Hepatitis C Antibody HIV 1&2 Antibody Rapid HIV P24 Antigen Rubella IgG Antibody Blood Type O POSITIVE Antibody Screen Negative 08/05/16 08/05/16 08/05/16 03:00 03:00 03:00 WBC RBC Hgb Hct MCV MCH MCHC RDW Plt Count Sodium 134 L Potassium 3.8 Chloride 102.5 Carbon Dioxide 16 L Anion Gap 19 BUN 12 Creatinine 0.4 L Estimated GFR > 60 BUN/Creatinine Ratio 30.00 Glucose 132 H Calcium 8.6 Magnesium Total Bilirubin < 0.2 Direct Bilirubin < 0.2 Indirect Bilirubin 0.0 AST 44 H ALT 41 Alkaline Phosphatase 204 H Total Protein 6.5 Albumin 3.1 L Albumin/Globulin Ratio 0.9 Urine Color Urine Turbidity Urine pH Ur Specific [place] Urine Protein Urine Glucose (UA) Urine Ketones Urine Blood Urine Nitrite Urine Bilirubin Urine Urobilinogen Ur Leukocyte Esterase Urine WBC (Auto) Urine RBC (Auto) U Epithel Cells (Auto) Urine Mucus Urine Opiates Screen Urine Methadone Screen Ur Barbiturates Screen Ur Phencyclidine Scrn Ur Amphetamines Screen U Benzodiazepines Scrn Urine Cocaine Screen U Marijuana (THC) Screen Drugs of Abuse Note RPR Hep Bs Antigen Non-reactive Hepatitis C Antibody Non-reactive HIV 1&2 Antibody Rapid HIV P24 Antigen Rubella IgG Antibody Immune Blood Type Antibody Screen 08/05/16 08/05/16 08/05/16 03:00 03:00 06:48 WBC RBC Hgb Hct MCV MCH MCHC RDW Plt Count Sodium Potassium Chloride Carbon Dioxide Anion Gap BUN Creatinine Estimated GFR BUN/Creatinine Ratio Glucose Calcium Magnesium 3.5 H Total Bilirubin Direct Bilirubin Indirect Bilirubin AST ALT Alkaline Phosphatase Total Protein Albumin Albumin/Globulin Ratio Urine Color Urine Turbidity Urine pH Ur Specific [place] Urine Protein Urine Glucose (UA) Urine Ketones Urine Blood Urine Nitrite Urine Bilirubin Urine Urobilinogen Ur Leukocyte Esterase Urine WBC (Auto) Urine RBC (Auto) U Epithel Cells (Auto) Urine Mucus Urine Opiates Screen Urine Methadone Screen Ur Barbiturates Screen Ur Phencyclidine Scrn Ur Amphetamines Screen U Benzodiazepines Scrn Urine Cocaine Screen U Marijuana (THC) Screen Drugs of Abuse Note RPR Nonreactive Hep Bs Antigen Hepatitis C Antibody HIV 1&2 Antibody Rapid Non react HIV P24 Antigen Non react Rubella IgG Antibody Blood Type Antibody Screen 08/05/16 08/05/16 08/05/16 07:30 13:15 18:00 WBC RBC Hgb Hct MCV MCH MCHC RDW Plt Count Sodium Potassium Chloride Carbon Dioxide Anion Gap BUN Creatinine Estimated GFR BUN/Creatinine Ratio Glucose Calcium Magnesium 4.7 H 5.1 H Total Bilirubin Direct Bilirubin Indirect Bilirubin AST ALT Alkaline Phosphatase Total Protein Albumin Albumin/Globulin Ratio Urine Color Yellow Urine Turbidity Clear Urine pH 5.0 Ur Specific [place] 1.029 Urine Protein <15 mg/dl Urine Glucose (UA) Neg Urine Ketones Neg Urine Blood Neg Urine Nitrite Neg Urine Bilirubin Neg Urine Urobilinogen < 2.0 Ur Leukocyte Esterase Neg Urine WBC (Auto) 1.0 Urine RBC (Auto) 1.0 U Epithel Cells (Auto) 1.0 Urine Mucus Few Urine Opiates Screen Urine Methadone Screen Ur Barbiturates Screen Ur Phencyclidine Scrn Ur Amphetamines Screen U Benzodiazepines Scrn Urine Cocaine Screen U Marijuana (THC) Screen Drugs of Abuse Note RPR Hep Bs Antigen Hepatitis C Antibody HIV 1&2 Antibody Rapid HIV P24 Antigen Rubella IgG Antibody Blood Type Antibody Screen 08/06/16 08/06/16 05:36 05:36 WBC RBC Hgb 12.4 Hct 36.5 MCV MCH MCHC RDW Plt Count Sodium Potassium Chloride Carbon Dioxide Anion Gap BUN Creatinine Estimated GFR BUN/Creatinine Ratio Glucose Calcium Magnesium 5.1 H Total Bilirubin Direct Bilirubin Indirect Bilirubin AST ALT Alkaline Phosphatase Total Protein Albumin Albumin/Globulin Ratio Urine Color Urine Turbidity Urine pH Ur Specific [place] Urine Protein Urine Glucose (UA) Urine Ketones Urine Blood Urine Nitrite Urine Bilirubin Urine Urobilinogen Ur Leukocyte Esterase Urine WBC (Auto) Urine RBC (Auto) U Epithel Cells (Auto) Urine Mucus Urine Opiates Screen Urine Methadone Screen Ur Barbiturates Screen Ur Phencyclidine Scrn Ur Amphetamines Screen U Benzodiazepines Scrn Urine Cocaine Screen U Marijuana (THC) Screen Drugs of Abuse Note RPR Hep Bs Antigen Hepatitis C Antibody HIV 1&2 Antibody Rapid HIV P24 Antigen Rubella IgG Antibody Blood Type Antibody Screen
[2016-08-06] MEDS: PRENATAL VITAMIN PO SCH (09:53)
[2016-08-06] MEDS: FEOSOL PO SCH ×2 (09:54→22:36)
[2016-08-06] MEDS: COLACE PO SCH ×2 (09:54→22:36)
--- NOTE | 2016-08-06 10:59 | Progress Note ---
Subjective Date of service: 08/06/16 Principal diagnosis: s/p - PPD #1 Interval history: 1st day after normal vaginal delivery Patient is active, comfortable. Pain is well controlled with pain meds. No residual neurological deficit. No anesthesia complications Objective - Constitutional Vitals: Vital Signs - 12hr 08/06/16 08/06/16 08/06/16 00:04 00:50 02:20 Temperature 98.2 F 98.3 F 98.3 F Pulse Rate Pulse Rate [ 81 85 93 H Left] Respiratory 20 20 20 Rate Blood Pressure Blood Pressure 140/86 139/85 145/76 [Left Arm] 08/06/16 08/06/16 08/06/16 03:51 06:03 08:20 Temperature 97.9 F 98.9 F 98.0 F Pulse Rate Pulse Rate [ 108 H 84 70 Left] Respiratory 18 20 20 Rate Blood Pressure Blood Pressure 123/67 119/56 148/98 [Left Arm] 08/06/16 09:54 Temperature Pulse Rate 74 Pulse Rate [ Left] Respiratory Rate Blood Pressure 115/73 Blood Pressure [Left Arm] - Labs CBC & Chem 7: 08/06/16 05:36 08/05/16 03:00 Labs: Abnormal lab results 08/05/16 08/05/16 08/06/16 Range/Units 13:15 18:00 05:36 Magnesium 4.7 H 5.1 H 5.1 H (1.7-2.3) mg/dL
[2016-08-06] MEDS ORDERED: BOOSTRIX IM ONE (12:00)
[2016-08-06] MEDS ORDERED: M-M-R II VACCINE SUB-Q ONE (12:00)
[2016-08-06] MEDS ORDERED: FLUARIX QUAD 2016-2017(36 MOS+) IM ONE (12:00)
[2016-08-06] MEDS ORDERED: PROCTOSOL-HC PR PRN (13:00)
[2016-08-07] MEDS ORDERED: BOOSTRIX IM ONE (06:00)
--- NOTE | 2016-08-07 10:51 | Progress Note ---
Assessment and Plan - Patient Problems (1) (normal spontaneous vaginal delivery) Diagnosis Date: 08/06/16 Current Visit: Yes Status: Acute Plan to address problem: A: S/P - PPD #2 Doing well PIH - BP's stable on Labetolol 200mg BID P: May go home today Subjective - Subjective Date of service: 08/07/16 Principal diagnosis: s/p - PPD #2 Interval history: Pt is feeling well without complaints. Bleeding improved. BP doing good on Labetolol 200mg BID. Patient reports: appetite normal, voiding normally, pain well controlled, flatus , ambulating normally : doing well, bottle feeding Objective - Vital Signs Latest vital signs: Vital Signs Temp Pulse Pulse Resp BP BP 08/07/16 08:12 98.3 F 78 20 120/78 08/07/16 01:10 98.2 F 74 20 122/79 08/06/16 22:36 83 125/72 08/06/16 22:34 83 125/72 08/06/16 17:47 18 08/06/16 16:10 98.1 F 76 20 138/90 08/06/16 12:50 97.7 F 80 20 08/06/16 11:32 18 Intake and Output 08/06/16 08/07/16 08/07/16 22:59 06:59 14:59 Intake Total 360 240 360 Output Total 450 600 Balance -90 -360 360 Intake: Oral 360 360 Intake, Free Water 240 Output: Urine 450 600 Void 450 600 Other: Total, Intake Amount 360 360 Total, Output Amount 450 600 Voiding Method Toilet # Voids Void 1 - Exam Breasts: Present: deferred Abdomen: Present: normal appearance, soft Uterus: Present: normal, firm, fundal height below umbilicus Extremities: Present: normal
--- NOTE | 2016-08-07 10:52 | Discharge Summary ---
Providers - Providers Date of Admission: 08/05/16 01:21 Date of discharge: 08/07/16 Attending physician: YANA STEINER Primary care physician: YANA STEINER Hospitalization Reason for admission: active labor, IUP at term Delivery: Episiotomy: none Laceration: 3rd degree Other procedures: none complications: none Discharge diagnosis: IUP at term delivered [place] baby: female Hospital course: Pt is a 26-year-old BF at 38+5 weeks gestation who presented in active labor. Her blood pressure was elevated at 140s to 160s over 90's diastolic, but she denied headache, scotomata or epigastric pain. Her delivery was unremarkable except for a 3rd degree laceration which was repaired, and she received IV magnesium sulfate along with Labetolol 200mg BID for BP control. course was uneventful and BP's remained stable on Labetolol. She will therefore be discharged to home on PPD #2 with Labetolol 200mg BID in stable condition. Condition at discharge: Good Disposition: DISCHARGED TO HOME OR SELFCARE - Discharge Diagnoses (1) (normal spontaneous vaginal delivery) Status: Resolved Plan - Discharge Medications Prescriptions: HYDROcodone/APAP 5-325 [[place] 5/325] 1 each PO Q6HR PRN #10 tablet PRN Reason: Pain Ibuprofen [Motrin 600 MG tab] 600 mg PO Q8H PRN #30 tablet PRN Reason: Pain Labetalol [Normodyne TAB] 200 mg PO BID #60 tablet Multivitamin with Iron [Multivitamins with Iron] 1 each PO DAILY #30 tablet - Provider Discharge Summary Activity: routine, no sex for 6 weeks, no heavy lifting 4 weeks, no strenuous exercise Diet: routine Instructions: routine Additional instructions: [] Smoking cessation referral if applicable(refer to patient education folder for contact #) [] Refer to [facility] Booklet Call your doctor immediately for: * Fever > 100.5 * Heavy vaginal bleeding ( >1 pad per hour) * Severe persistent headache * Shortness of breath * Reddened, hot, painful area to leg or breast * Drainage or odor from incision. * Keep incision clean and dry at all times and follow doctor's instructions regarding bathing/showering Follow up in office in 2 weeks for BP check. - Follow up plan Follow up: YANA STEINER MD [Primary Care Provider] - 14 Days
[2016-08-07] MEDS: FEOSOL PO SCH (11:03)
[2016-08-07] MEDS: PRENATAL VITAMIN PO SCH (11:03)
[2016-08-07] MEDS: NORMODYNE PO SCH (11:04)
[2016-08-07] MEDS: COLACE PO SCH (11:04)
[2016-08-07 14:31] VITALS: BP 120/74
== END 2016-08-07 14:40 | disposition home or self-care (01) | DRG 988 ==
LOC: TRG 00:25 → LD 01:21 → OB 17:10
PROVIDERS: ADMIT Obstetrics & Gynecology Gynecology; ATTEND Obstetrics & Gynecology Gynecology
PROC: 10E0XZZ Delivery of Products of Conception, External Approach (ICD-10-PCS; principal; 2016-08-05)
PROC: 0DQR0ZZ Repair Anal Sphincter, Open Approach (ICD-10-PCS; 2016-08-05)
PROC: 3E0S3CZ (ICD-10-PCS; 2016-08-05)
PROC: 00HU33Z Insertion of Infusion Device into Spinal Canal, Percutaneous Approach (ICD-10-PCS; 2016-08-05)
PROC: 3E0234Z Introduction of Serum, Toxoid and Vaccine into Muscle, Percutaneous Approach (ICD-10-PCS; 2016-08-06)
DX: O13.4 Gestational [pregnancy-induced] hypertension without significant proteinuria, complicating childbirth (principal); O70.20 Third degree perineal laceration during delivery, unspecified; O76 Abnormality in fetal heart rate and rhythm complicating labor and delivery; O77.0 Labor and delivery complicated by meconium in amniotic fluid; O09.33 Supervision of pregnancy with insufficient antenatal care, third trimester; Z3A.38 38 weeks gestation of pregnancy; Z37.0 Single live birth; Z23 Encounter for immunization
CPT/HCPCS: 36415; 80048; 80074; 80307; 81001; 83735; 85014; 85018; 85027; 86592; 86706; 86762; 86803; 86850; 86900; 86901; 87806; 90471; 90686; 90715; 99211; G0008; G0463; J0290; J2210; J2590; J3475; J7120

== ENCOUNTER 2019-08-11 08:06 | Day surgery (SDC) | payer MEDICAID ==
[~2019-08-11 08:06] MED LIST: ceFAZolin/Water 2 GM/20 ML 2 GM/20 ML SYRINGE IV NR
[2019-08-11] MEDS ORDERED: ROCURONIUM 50 MG/5 ML INJ IV ONE (09:02)
[2019-08-11] MEDS ORDERED: ONDANSETRON 4 MG/2 ML INJ ONE (09:02)
[2019-08-11] MEDS ORDERED: fentaNYL 250 MCG/5 ML INJ ONE (09:02)
[2019-08-11] MEDS ORDERED: dexAMETHasone 20 MG/5 ML VIAL ONE (09:02)
[2019-08-11] MEDS ORDERED: PROPOFOL 200 MG/20 ML VIAL IV ONE (09:02)
[2019-08-11] MEDS ORDERED: NEOSTIGMINE 10MG/10 ML INJ MDV ONE (09:04)
[2019-08-11] MEDS ORDERED: SUCCINYLCHOLINE CHLORIDE 200 MG/10 ML INJ MDV ONE (09:04)
[2019-08-11] MEDS ORDERED: GLYCOPYRROLATE 0.4 MG/2 ML INJ ONE (09:04)
[2019-08-11] MEDS ORDERED: LIDOCAINE MPF (2%) 20 MG/1 ML VIAL 5 ML ONE (09:04)
[2019-08-11] MEDS ORDERED: PHENYLEPHRINE/NS 1,000 MCG/10 ML SYRINGE (OR USE) IV ONE (09:04)
[2019-08-11] MEDS ORDERED: LACTATED RINGERS 1,000 ML IV SCH (09:09)
[2019-08-11] MEDS ORDERED: MIDAZOLAM 2 MG/2 ML INJ IV NR (09:09)
--- NOTE | 2019-08-11 09:13 | Anesthesia Consultation ---
Anesthesia Consult and Med Hx Date of service: 08/11/19 - Airway Anesthetic Teeth Evaluation: Good ROM Head & Neck: Adequate Mental/Hyoid Distance: Adequate Mallampati Class: Class I Intubation Access Assessment: Good - Pulmonary Exam CTA: Yes - Cardiac Exam Cardiac Exam: No Murmur - Pre-Operative Health Status ASA Pre-Surgery Classification: ASA1 Proposed Anesthetic Plan: General - Pulmonary Hx Asthma: No COPD: No Hx Pneumonia: No - Cardiovascular System Hx Hypertension: No - Central Nervous System Hx Seizures: No Hx Psychiatric Problems: No - Endocrine Hx Renal Disease: No Hx End Stage Renal Disease: No Hx Hypothyroidism: No Hx Hyperthyroidism: No - Hematic Hx Anemia: No Hx Sickle Cell Disease: No - Other Systems Hx Alcohol Use: No Hx Substance Use: No Hx Cancer: No
--- NOTE | 2019-08-11 09:14 | Anesthesia Day of Surgery ---
Anesthesia Day of Surgery - Day of Surgery Patient Examined: Yes Patient H&P Reviewed: Yes Patient is NPO: Yes
[2019-08-11] MEDS ORDERED: BUPIVACAINE/PF (0.5%) 5 MG/1 ML 30 ML VIAL INFILTRATI ONE (09:25)
[2019-08-11] MEDS ORDERED: BUPIVACAINE/PF (0.25%) 2.5 MG/ML 30 ML VIAL INFILTRATI ONE ×2 (09:25→10:46)
[2019-08-11] MEDS ORDERED: LIDOCAINE (1%) 10 MG/1 ML VIAL 20 ML MDV ONE (09:26)
[2019-08-11] MEDS ORDERED: LIDOCAINE (1%) 10 MG/1 ML VIAL 20 ML MDV INFILTRATI ONE (10:46)
--- NOTE | 2019-08-11 10:46 | Short Stay Summary ---
Short Stay Documentation Date of service: 08/11/19 - History Principal diagnosis: pilonidal cyst H&P: obtained from office - Allergies and Medications Current Medications: Allergies No Known Allergies Allergy (Verified 08/06/19 10:04) Home Medications Medication Instructions Recorded Confirmed Last Taken Type No Known Home Medications [No 08/06/19 08/06/19 Unknown History Reported Home Medications] Active Medications Cefazolin Sodium (Ancef/Sterile Water 2 Gm/20 Ml) 2 gm in 20 mls @ 80 mls/hr IV PREOP NR Stop: 08/11/19 23:59 Lactated Ringer's (Lactated Ringers) 1,000 mls @ 100 mls/hr IV DIRECT CRYSTAL Last Admin: 08/11/19 09:26 Dose: 100 mls/hr Documented by: Midazolam HCl (Versed) 2 mg IV ONCE NR Stop: 08/11/19 16:00 Last Admin: 08/11/19 09:26 Dose: 2 mg Documented by: - Brief post op/procedure progress note Date of procedure: 08/11/19 Pre-op diagnosis: pilonidal cyst Post-op diagnosis: same Procedure: excision of pilonidal cyst Anesthesia: GETA, local Findings: 3 cm area of scar tissue in mid gluteal cleft Surgeon: DUGLAS PIERRE Retail Salesman: JOSE MACEDO Estimated blood loss: minimal Pathology: list (pilonidal cyst) Specimen disposition: to lab Condition: stable - Hospital course Hospital course: Pt observed in PACU and discharged to home in stable condition when criteria met - Disposition Condition at discharge: Good Disposition: DC-01 TO HOME OR SELFCARE Short Stay Discharge Plan Activity: other (see attached paperwork) Diet: regular Wound: per your surgeon's advice Additional Instructions: SEE ADDITIONAL PRINTED INSTRUCTIONS FOR ACTIVITY AND WOUND CARE Follow up with: PRIMARY CARE, [Primary Care Provider] - 7 Days DUGLAS PIERRE DO [Staff Physician] - 3 Days Prescriptions: Ibuprofen [Motrin 800 MG tab] 800 mg PO Q8HR #30 tablet HYDROcodone/APAP 5-325 [[place] 5/325] 1 each PO Q6HR PRN #20 tablet PRN Reason: Pain , Severe (7-10)
[2019-08-11] MEDS ORDERED: SODIUM CHLORIDE 0.9% IRR 1,000 ML BOTTLE IR ONE (10:48)
[2019-08-11] MEDS ORDERED: HYDROmorphone 1 MG/1 ML INJ IV PRN (11:16)
[2019-08-11] MEDS ORDERED: ONDANSETRON 4 MG/2 ML INJ IV PRN (11:16)
[2019-08-11] MEDS ORDERED: MEPERIDINE 25 MG/1 ML INJ IV PRN (11:16)
[2019-08-11 12:00] VITALS: BP 125/69
--- NOTE | 2019-08-12 16:12 | Operative Report ---
Operative Report Operative Report: Date of procedure: 08/11/19 Pre-op diagnosis: pilonidal cyst Post-op diagnosis: same Procedure: excision of pilonidal cyst Anesthesia: GETA, local Findings: 3 cm area of scar tissue in mid gluteal cleft Surgeon: DUGLAS PIERRE Turpentine Farmer: JOSE MACEDO Estimated blood loss: minimal Pathology: list (pilonidal cyst) Specimen disposition: to lab Condition: stable - Hospital course Hospital course: Pt observed in PACU and discharged to home in stable condition when criteria met HPI and indication: 29 yo F who presented to surgery clinic for evaluation of discomfort and white drainage from her gluteal cleft. The patient was having this issue for many years. She had used topical creams and medications, and undergone biopsies of the area in the past. From examination, it was determined that the patient had a pilonidal cyst. Excision was recommended. All risks, benefits, alternatives to surgery discussed with the patient and questions answered. Consent obtained. Procedure in detail: Pt identified in the preoperative area and taken back to the operating room. After anesthesia was induced, she was placed on the operating room table in prone jackknife position. The buttocks were taped apart and the gluteal cleft area prepped and draped in the usual sterile fashion. The area of skin with chronic scarring was identified and measured approximately 3 cm. Local anesthetic was infiltrated into the skin. An elliptical incision was made around the area using a 15 blade and dissection carried down through the subcutaneous tissue to the presacral fascia using electrocautery. The tissue was then transected and passed off the table as a specimen. The subcutaneous tissue was probed and no additional tracts were identified. There were no other skin openings. The wound was irrigated and hemostasis ensured. The tape on the buttocks was released. The wound was then closed in two layers without tension. The deep layer was approximated using 3-0 vicryl interrupted suture. The skin was approximated with 2-0 nylon vertical mattress sutures. A piece of telfa was packed into the corner of the incision. A 4-4 gauze was applied and covered with medipore tape. At the end of the case, all sponge, instrument, and sharp counts were correct x 2. The patient was transferred to the stretcher in supine position, awoken from anesthesia, and transferred to to PACU in stable condition.
== END 2019-08-11 08:07 | disposition home or self-care (01) ==
LOC: OR 08:06
PROVIDERS: ATTEND Surgery
DX: L05.91 Pilonidal cyst without abscess (principal); Z79.899 Other long term (current) drug therapy; Z83.3 Family history of diabetes mellitus; Z98.890 Other specified postprocedural states
CPT/HCPCS: 11771; 81025; 88304; J0330; J0690; J1100; J1170; J2175; J2250; J2370; J2405; J2704; J2710; J3010; J7120

== ENCOUNTER 2019-09-07 09:48 | Outpatient (CLI) | payer MEDICAID ==
[2019-09-07] MEDS ORDERED: LIDOCAINE (4%) 40 MG/ML TOPICAL SOLN 50 ML BOTTLE TP ONE (10:56)
[2019-09-07] MEDS ORDERED: SILVER NITRATE APPLICATOR 1 EA TP ONE (10:56)
== END 2019-09-07 09:49 | disposition home or self-care (01) ==
LOC: WOUND 09:48
PROVIDERS: ATTEND Surgery
DX: T81.89XA Other complications of procedures, not elsewhere classified, initial encounter (principal); L05.91 Pilonidal cyst without abscess; Y83.8 Other surgical procedures as the cause of abnormal reaction of the patient, or of later complication, without mention of misadventure at the time of the procedure; Y92.89 Other specified places as the place of occurrence of the external cause
CPT/HCPCS: 11042; G0463; 99214

== ENCOUNTER 2019-09-14 10:02 | Outpatient (CLI) | payer BC, MEDICAID ==
[2019-09-14] MEDS ORDERED: LIDOCAINE (4%) 40 MG/ML TOPICAL SOLN 50 ML BOTTLE TP ONE (11:11)
[2019-09-14] MEDS ORDERED: SODIUM CHLORIDE 0.9% IRR 500 ML BOTTLE IR ONE (11:58)
== END 2019-09-14 10:03 | disposition home or self-care (01) ==
LOC: WOUND 10:02
PROVIDERS: ATTEND Surgery
DX: T81.89XD Other complications of procedures, not elsewhere classified, subsequent encounter (principal); L05.91 Pilonidal cyst without abscess; Y83.8 Other surgical procedures as the cause of abnormal reaction of the patient, or of later complication, without mention of misadventure at the time of the procedure

== ENCOUNTER 2019-09-21 09:56 | Outpatient (CLI) | payer BC, MEDICAID ==
[2019-09-21] MEDS ORDERED: LIDOCAINE (4%) 40 MG/ML TOPICAL SOLN 50 ML BOTTLE TP ONE (10:12)
== END 2019-09-21 09:57 | disposition home or self-care (01) ==
LOC: WOUND 09:56
PROVIDERS: ATTEND Surgery
DX: T81.89XD Other complications of procedures, not elsewhere classified, subsequent encounter (principal); L05.91 Pilonidal cyst without abscess; Y83.8 Other surgical procedures as the cause of abnormal reaction of the patient, or of later complication, without mention of misadventure at the time of the procedure

== ENCOUNTER 2019-09-28 09:56 | Outpatient (CLI) | payer BC, MEDICAID ==
[2019-09-28] MEDS ORDERED: LIDOCAINE (4%) 40 MG/ML TOPICAL SOLN 50 ML BOTTLE TP ONE (10:30)
== END 2019-09-28 09:57 | disposition home or self-care (01) ==
LOC: WOUND 09:56
PROVIDERS: ATTEND Surgery
DX: T81.89XD Other complications of procedures, not elsewhere classified, subsequent encounter (principal); L05.91 Pilonidal cyst without abscess; Y83.8 Other surgical procedures as the cause of abnormal reaction of the patient, or of later complication, without mention of misadventure at the time of the procedure

== ENCOUNTER 2019-11-02 10:14 | Outpatient (CLI) | payer BC, MEDICAID | END 2019-11-02 10:15 | disposition home or self-care (01) | LOC: WOUND 10:14 | PROVIDERS: ATTEND Surgery | DX: T81.89XD Other complications of procedures, not elsewhere classified, subsequent encounter (principal); L05.91 Pilonidal cyst without abscess; Y83.8 Other surgical procedures as the cause of abnormal reaction of the patient, or of later complication, without mention of misadventure at the time of the procedure | CPT/HCPCS: 99212; G0463 ==

== ENCOUNTER 2019-12-11 14:09 | Emergency (ER) | payer BC, MEDICAID ==
[2019-12-11 14:48] VITALS: BP 118/76
--- NOTE | 2019-12-11 15:18 | Emergency Department Report ---
Chief Complaint: Neck Pain/Injury Stated Complaint: BACK PAIN Time Seen by Provider: 12/11/19 15:11 - HPI History of Present Illness: pt is a 29 yo female who presents to the ED for right sided back pain began three days ago. She has been lifting heavy boxes and bending down to scan things. she denies any fall or injury. she denies any numbness or weakness. she denies any fever, cough, CP. PMHx none. no allergies to meds Vitals are normal On exam: Non toxic appearing, no acute distress atraumatic, normocephalic normal appearance of the eyes, PERRL, EOMI, no periorbital edema or ecchymosis moist mucus membranes regular heart rate and rhythm, no gallops, no rubs, no murmurs breath sounds are clear bilaterally, no w/r/r Right-sided T-spine paraspinal muscular tenderness to palpation, no midline C- spine, T-spine, L-spine tenderness palpation, no step-offs, no deformities, patient he was able to lift both arms up above the head briskly A&O x4, no focal neuro deficit skin is warm, dry, intact Patient is presenting with signs and symptoms of a muscle strain She has had no fall or injury She does heavy lifting at work Discussed supportive care and symptomatic treatment with patient may alternate ibuprofen then tylenol every 8 hours as needed for pain. may use ice pack, heating pad, rest, epsom salt bath. follow up with a primary care doctor. return to the emergency room for any new or worsening symptoms. Discussed strict return precautions with patient Medical screening examination performed and there is no threat to life or limb at this time - Exam Vital Signs: Vital Signs 12/11/19 14:46 Temperature 98.9 F Pulse Rate 62 Respiratory 20 Rate Blood Pressure 118/76 O2 Sat by Pulse 100 Oximetry MSE screening note: Focused history and physical exam performed. ED Disposition for MSE Clinical Impression: Upper back pain on right side Disposition: Z-07 MED SCREENING EXAM-LEFT Is pt being admited?: No Does the pt Need Aspirin: No Condition: Stable Instructions: Muscle Strain (ED) Additional Instructions: may alternate ibuprofen then tylenol every 8 hours as needed for pain. may use ice pack, heating pad, rest, epsom salt bath. follow up with a primary care doctor. return to the emergency room for any new or worsening symptoms. Referrals: JEANNETTE CALZADA MD [Staff Physician] - 3-5 Days [facility] [Provider Group] - 3-5 Days [facility] [Outside] - 3-5 Days [facility] [Outside] - 3-5 Days Forms: Work/School Release Form(ED) Time of Disposition: 15:18 Print Language: KITTITIAN
== END 2019-12-11 15:30 | disposition left against medical advice (07) ==
LOC: ED 14:09
DX: M54.6 Pain in thoracic spine (principal); D64.9 Anemia, unspecified
CPT/HCPCS: 99282

== ENCOUNTER 2020-05-24 07:51 | Day surgery (SDC) | payer BC, MEDICAID ==
[~2020-05-24 07:51] MED LIST changes: +BUPIVACAINE/PF (0.25%) 2.5 MG/ML 30 ML VIAL INFILTRATI ONE; +LACTATED RINGERS 1,000 ML IV SCH; +LIDOCAINE (1%) 10 MG/1 ML VIAL 20 ML MDV ONE; +MIDAZOLAM 2 MG/2 ML INJ IV NR; -ceFAZolin/Water 2 GM/20 ML 2 GM/20 ML SYRINGE IV NR; +ceFAZolin/Water 2 GM/20 ML 2 GM/20 ML SYRINGE IV SCH
--- NOTE | 2020-05-24 08:13 | Anesthesia Consultation ---
Anesthesia Consult and Med Hx Date of service: 05/24/20 - Airway Anesthetic Teeth Evaluation: Good ROM Head & Neck: Adequate Mental/Hyoid Distance: Adequate Mallampati Class: Class II Intubation Access Assessment: Probably Good - Pulmonary Exam CTA: Yes - Cardiac Exam Cardiac Exam: RRR - Pre-Operative Health Status ASA Pre-Surgery Classification: ASA1 Proposed Anesthetic Plan: General - Pulmonary Hx Smoking: No Hx Respiratory Symptoms: No Hx Sleep Apnea: No (LAZARA PRE SCREEN NEGATIVE) - Cardiovascular System Hx Hypertension: No Hx Heart Attack/AMI: No Hx Cardia Arrhythmia: No - Central Nervous System CVA: No - Endocrine Hx Renal Disease: No Hx Liver Disease: No Hx Insulin Dependent Diabetes: No Hx Non-Insulin Dependent Diabetes: No Hx Thyroid Disease: No - Other Systems Hx Obesity: Yes (BMI 33) - Additional Comments Anesthesia Medical History Comments: No hx anesthetic complications.
--- NOTE | 2020-05-24 08:13 | Anesthesia Day of Surgery ---
Anesthesia Day of Surgery - Day of Surgery Patient Examined: Yes Patient H&P Reviewed: Yes Patient is NPO: Yes
[2020-05-24] MEDS ORDERED: ROCURONIUM 50 MG/5 ML INJ IV ONE (08:36)
[2020-05-24] MEDS ORDERED: fentaNYL 100 MCG/2 ML INJ ONE (08:36)
[2020-05-24] MEDS ORDERED: propofoL 200 MG/20 ML VIAL IV ONE (08:37)
[2020-05-24] MEDS ORDERED: BUPIVACAINE/PF (0.25%) 2.5 MG/ML 30 ML VIAL INFILTRATI ONE (09:26)
[2020-05-24] MEDS ORDERED: LIDOCAINE (1%) 10 MG/1 ML VIAL 20 ML MDV INFILTRATI ONE (09:27)
--- NOTE | 2020-05-24 10:07 | Short Stay Summary ---
Short Stay Documentation Date of service: 05/24/20 - History Principal diagnosis: pilonidal cyst H&P: obtained from office - Allergies and Medications Current Medications: Allergies No Known Allergies Allergy (Verified 08/06/19 10:04) Home Medications Medication Instructions Recorded Confirmed Last Taken Type No Known Home Medications [No 05/16/20 05/24/20 Unknown History Reported Home Medications] Active Medications Hydromorphone HCl (Dilaudid) 0.5 mg IV Q10MIN PRN PRN Reason: Pain , Severe (7-10) Stop: 05/24/20 23:00 Lactated Ringer's (Lactated Ringers) 1,000 mls @ 100 mls/hr IV DIRECT CRYSTAL Stop: 05/24/20 23:59 Last Admin: 05/24/20 08:45 Dose: 100 mls/hr Documented by: Cefazolin Sodium (Ancef/Sterile Water 2 Gm/20 Ml) 2 gm in 20 mls @ 40 mls/hr IV PREOP CRYSTAL; Protocol Stop: 05/24/20 23:01 Midazolam HCl (Versed) 2 mg IV PREOP NR Stop: 05/24/20 23:59 Last Admin: 05/24/20 08:45 Dose: 2 mg Documented by: - Brief post op/procedure progress note Date of procedure: 05/24/20 Pre-op diagnosis: pilonidal cyst Post-op diagnosis: same Procedure: excision pilonidal cyst Anesthesia: GETA, local Findings: Skin changes over sacrum with chronic inflammation of underlying tissue consistent with pilonidal cyst. [id number] (lxwxd) wound Surgeon: DUGLAS PIERRE Estimated blood loss: minimal Pathology: list (pilonidal cyst) Specimen disposition: to lab Condition: stable - Hospital course Hospital course: Pt observed in PACU and discharged to home in stable condition when criteria met - Disposition Condition at discharge: Good Disposition: DC-01 TO HOME OR SELFCARE Short Stay Discharge Plan Activity: avoid flexion, other (avoid bending down or sitting forward) Diet: regular Wound: per your surgeon's advice, other (Leave dressing in place. May cover with more gauze if becomes saturated with fluid.) Additional Instructions: Please follow up in surgery clinic on 05/26 1400 Please follow up in [facility] on 05/30 @ 930am Follow up with: PRIMARY CAREMD [Primary Care Provider] - 7 Days DUGLAS PIERRE DO [Staff Physician] - 05/26/20 2:00 pm Prescriptions: Ibuprofen [Motrin 800 MG tab] 800 mg PO Q8HR PRN #30 tablet PRN Reason: Pain, Moderate (4-6) HYDROcodone/APAP 5-325 [[place] 5/325] 1 each PO Q4HR PRN #20 tablet PRN Reason: Pain , Severe (7-10)
[2020-05-24] MEDS: HYDROmorphone 1 MG/1 ML INJ IV PRN ×3 (10:28→11:03)
[2020-05-24] MEDS ORDERED: LIDOCAINE MPF (2%) 20 MG/1 ML VIAL 5 ML ONE (11:00)
[2020-05-24] MEDS ORDERED: ONDANSETRON 4 MG/2 ML INJ ONE ×2 (11:04→11:32)
[2020-05-24] MEDS ORDERED: dexAMETHasone 20 MG/5 ML VIAL ONE (11:04)
[2020-05-24] MEDS ORDERED: KETOROLAC 30 MG/1 ML INJ ONE (11:04)
[2020-05-24] MEDS ORDERED: ONDANSETRON 4 MG/2 ML INJ IV PRN (11:35)
[2020-05-24 11:46] VITALS: BP 117/66
--- NOTE | 2020-05-24 13:28 | Post Anesthesia Evaluation ---
- Post Anesthesia Evaluation Patient Participated: Yes Airway Patent: Yes Stable Respiratory Function: Yes Nausea/Vomiting: No Temp > 96.8F: Yes Pain Manageable: Yes Adequeate Hydration: Yes Anesthesia Complications: No
--- NOTE | 2020-05-24 13:47 | Operative Report ---
Operative Report Operative Report: Date of procedure: 05/24/20 Pre-op diagnosis: pilonidal cyst Post-op diagnosis: same Procedure: excision pilonidal cyst Anesthesia: GETA, local Findings: Skin changes over sacrum with chronic inflammation of underlying tissue consistent with pilonidal cyst. [id number] (lxwxd) wound Surgeon: DUGLAS PIRERE Estimated blood loss: minimal Pathology: list (pilonidal cyst) Specimen disposition: to lab Condition: stable Hospital course: Pt observed in PACU and discharged to home in stable condition when criteria met HPI and indication: 30 yo F who underwent pilonidal cyst excision in July 2019. At that time the unhealthy skin visible on exam along with deep tissue was excised and pathology returned as pilonidal cyst. The patient healed well and had no issues up until one month ago. Most recently, the patient states the skin adjacent to the prior surgery started to become inflamed and there has been white solid material coming from the pores. Upon examination, the skin over the sacrum in the midline was macerated and inflamed extending to the gluteal cleft. The area previously operated on was unremarkable. It was felt that she had residual pilonidal cyst/sinus tracts present and wide local excision was recommended. All risks, benefits, alternatives to surgery discussed with the patient and questions answered. Consent obtained. Procedure in detail: Pt identified in the preoperative area and taken back to the operating room. After anesthesia was induced, she was placed on the operating room table in prone jackknife position. The buttocks were taped apart and the sacrum and gluteal cleft area prepped and draped in the usual sterile fashion. Local anesthetic was infiltrated into the skin. An elliptical incision was made around affected skin using a 10 blade. Dissection was carried down through the subcutaneous tissue to the presacral fascia using electrocautery and wide local excision was performed. The surrounding subcutaneous tissue was healthy. The tissue was gently dissected off of the presacral fascia and passed off the table as a specimen. The skin and subcutaneous tissue was probed and no additional tracts were identified. The wound was irrigated and hemostasis ensured. The tape on the buttocks was released. The wound measured [id number]. A single interrupted stitch was placed at the superior and inferior aspect of the wound respectively using 3-0 nylon suture. The remainder of the wound was left open. This was packed with one piece of saline moistened kerlex. This was covered with 4x4 gauze, ABD pad and medipore tape. At the end of the case, all sponge, instrument, and sharp counts were correct x 2. The patient was transferred to the stretcher in supine position, awoken from anesthesia, and transferred to to PACU in stable condition.
== END 2020-05-24 12:24 | disposition home or self-care (01) ==
LOC: OR 07:51
PROVIDERS: ATTEND Surgery
DX: L05.91 Pilonidal cyst without abscess (principal); L05.92 Pilonidal sinus without abscess; Z20.828 Contact with and (suspected) exposure to other viral communicable diseases; E66.9 Obesity, unspecified; Z83.3 Family history of diabetes mellitus; Z79.899 Other long term (current) drug therapy; Z98.890 Other specified postprocedural states; Z68.33 Body mass index [BMI] 33.0-33.9, adult
CPT/HCPCS: 11771; 81025; 88305; J0690; J1100; J1170; J1885; J2250; J2405; J2704; J3010; J7120; U0003; 88304

== ENCOUNTER 2020-05-30 13:19 | Outpatient (CLI) | payer BC, MEDICAID ==
[2020-05-30] MEDS ORDERED: LIDOCAINE (4%) 40 MG/ML TOPICAL SOLN 50 ML BOTTLE TP ONE (13:40)
== END 2020-05-30 13:20 | disposition home or self-care (01) ==
LOC: WOUND 13:19
PROVIDERS: ATTEND Surgery
DX: T81.89XA Other complications of procedures, not elsewhere classified, initial encounter (principal); L05.01 Pilonidal cyst with abscess; Y83.8 Other surgical procedures as the cause of abnormal reaction of the patient, or of later complication, without mention of misadventure at the time of the procedure; Y92.234 Operating room of hospital as the place of occurrence of the external cause
CPT/HCPCS: 11042; G0463; 99214

== ENCOUNTER 2020-06-06 09:03 | Outpatient (CLI) | payer BC, MEDICAID ==
[2020-06-06] MEDS ORDERED: LIDOCAINE (4%) 40 MG/ML TOPICAL SOLN 50 ML BOTTLE TP ONE (09:29)
== END 2020-06-06 09:04 | disposition home or self-care (01) ==
LOC: WOUND 09:03
PROVIDERS: ATTEND Surgery
DX: T81.89XD Other complications of procedures, not elsewhere classified, subsequent encounter (principal); L05.01 Pilonidal cyst with abscess; Y83.8 Other surgical procedures as the cause of abnormal reaction of the patient, or of later complication, without mention of misadventure at the time of the procedure
CPT/HCPCS: 97605

== ENCOUNTER 2020-06-08 10:10 | Outpatient (CLI) | payer BC, MEDICAID | END 2020-06-08 10:11 | disposition home or self-care (01) | LOC: WOUND 10:10 | PROVIDERS: ATTEND Surgery | DX: T81.89XD Other complications of procedures, not elsewhere classified, subsequent encounter (principal); L05.01 Pilonidal cyst with abscess; Y83.8 Other surgical procedures as the cause of abnormal reaction of the patient, or of later complication, without mention of misadventure at the time of the procedure | CPT/HCPCS: 97605; G0463; 99212 ==

== ENCOUNTER 2020-06-10 09:44 | Outpatient (CLI) | payer BC, MEDICAID | END 2020-06-10 09:45 | disposition home or self-care (01) | LOC: WOUND 09:44 | PROVIDERS: ATTEND Surgery | DX: T81.89XD Other complications of procedures, not elsewhere classified, subsequent encounter (principal); L05.01 Pilonidal cyst with abscess; Y83.8 Other surgical procedures as the cause of abnormal reaction of the patient, or of later complication, without mention of misadventure at the time of the procedure | CPT/HCPCS: 97605 ==

== ENCOUNTER 2020-06-13 09:11 | Outpatient (CLI) | payer BC, MEDICAID ==
[2020-06-13] MEDS ORDERED: LIDOCAINE (4%) 40 MG/ML TOPICAL SOLN 50 ML BOTTLE TP ONE (09:30)
== END 2020-06-13 09:12 | disposition home or self-care (01) ==
LOC: WOUND 09:11
PROVIDERS: ATTEND Surgery
DX: T81.89XD Other complications of procedures, not elsewhere classified, subsequent encounter (principal); L05.01 Pilonidal cyst with abscess; Y83.8 Other surgical procedures as the cause of abnormal reaction of the patient, or of later complication, without mention of misadventure at the time of the procedure

== ENCOUNTER 2020-06-20 09:01 | Outpatient (CLI) | payer BC, MEDICAID ==
[2020-06-20] MEDS ORDERED: LIDOCAINE (4%) 40 MG/ML TOPICAL SOLN 50 ML BOTTLE TP ONE (10:00)
== END 2020-06-20 09:02 | disposition home or self-care (01) ==
LOC: WOUND 09:01
PROVIDERS: ATTEND Surgery
DX: T81.89XD Other complications of procedures, not elsewhere classified, subsequent encounter (principal); L05.01 Pilonidal cyst with abscess; Y83.8 Other surgical procedures as the cause of abnormal reaction of the patient, or of later complication, without mention of misadventure at the time of the procedure

== ENCOUNTER 2020-07-04 09:24 | Outpatient (CLI) | payer BC, MEDICAID ==
[2020-07-04] MEDS ORDERED: LIDOCAINE (4%) 40 MG/ML TOPICAL SOLN 50 ML BOTTLE TP ONE (09:44)
== END 2020-07-04 09:25 | disposition home or self-care (01) ==
LOC: WOUND 09:24
PROVIDERS: ATTEND Surgery
DX: T81.89XD Other complications of procedures, not elsewhere classified, subsequent encounter (principal); L05.91 Pilonidal cyst without abscess; Y83.8 Other surgical procedures as the cause of abnormal reaction of the patient, or of later complication, without mention of misadventure at the time of the procedure

== ENCOUNTER 2020-07-11 09:14 | Outpatient (CLI) | payer BC, MEDICAID ==
[2020-07-11] MEDS ORDERED: LIDOCAINE (4%) 40 MG/ML TOPICAL SOLN 50 ML BOTTLE TP ONE (09:24)
== END 2020-07-11 09:15 | disposition home or self-care (01) ==
LOC: WOUND 09:14
PROVIDERS: ATTEND Surgery
DX: T81.89XD Other complications of procedures, not elsewhere classified, subsequent encounter (principal); L05.91 Pilonidal cyst without abscess; Y83.8 Other surgical procedures as the cause of abnormal reaction of the patient, or of later complication, without mention of misadventure at the time of the procedure

== ENCOUNTER 2020-07-25 09:14 | Outpatient (CLI) | payer BC, MEDICAID ==
[2020-07-25] MEDS ORDERED: LIDOCAINE (4%) 40 MG/ML TOPICAL SOLN 50 ML BOTTLE TP ONE (09:17)
== END 2020-07-25 09:15 | disposition home or self-care (01) ==
LOC: WOUND 09:14
PROVIDERS: ATTEND Surgery
DX: T81.89XD Other complications of procedures, not elsewhere classified, subsequent encounter (principal); L05.91 Pilonidal cyst without abscess; Y83.8 Other surgical procedures as the cause of abnormal reaction of the patient, or of later complication, without mention of misadventure at the time of the procedure

== ENCOUNTER 2020-08-08 09:06 | Outpatient (CLI) | payer BC, MEDICAID ==
[2020-08-08] MEDS ORDERED: LIDOCAINE (4%) 40 MG/ML TOPICAL SOLN 50 ML BOTTLE TP ONE (09:11)
== END 2020-08-08 09:07 | disposition home or self-care (01) ==
LOC: WOUND 09:06
PROVIDERS: ATTEND Surgery
DX: T81.89XD Other complications of procedures, not elsewhere classified, subsequent encounter (principal); L05.91 Pilonidal cyst without abscess; Y83.8 Other surgical procedures as the cause of abnormal reaction of the patient, or of later complication, without mention of misadventure at the time of the procedure

== ENCOUNTER 2020-08-29 09:30 | Outpatient (CLI) | payer MEDICAID ==
[2020-08-29] MEDS ORDERED: LIDOCAINE (4%) 40 MG/ML TOPICAL SOLN 50 ML BOTTLE TP ONE (11:00)
[2020-08-29] MEDS ORDERED: SILVER NITRATE APPLICATOR 1 EA TP ONE (11:00)
== END 2020-08-29 09:31 | disposition home or self-care (01) ==
LOC: WOUND 09:30
PROVIDERS: ATTEND Surgery
DX: T81.89XD Other complications of procedures, not elsewhere classified, subsequent encounter (principal); L05.91 Pilonidal cyst without abscess; Y83.8 Other surgical procedures as the cause of abnormal reaction of the patient, or of later complication, without mention of misadventure at the time of the procedure

== ENCOUNTER 2020-09-05 09:38 | Outpatient (CLI) | payer MEDICAID ==
[2020-09-05] MEDS ORDERED: LIDOCAINE (4%) 40 MG/ML TOPICAL SOLN 50 ML BOTTLE TP ONE (09:43)
== END 2020-09-05 09:39 | disposition home or self-care (01) ==
LOC: WOUND 09:38
PROVIDERS: ATTEND Surgery
DX: T81.89XD Other complications of procedures, not elsewhere classified, subsequent encounter (principal); L05.91 Pilonidal cyst without abscess; Y83.8 Other surgical procedures as the cause of abnormal reaction of the patient, or of later complication, without mention of misadventure at the time of the procedure

== ENCOUNTER 2020-09-19 09:32 | Outpatient (CLI) | payer MEDICAID ==
[2020-09-19] MEDS ORDERED: LIDOCAINE (4%) 40 MG/ML TOPICAL SOLN 50 ML BOTTLE TP ONE (09:54)
== END 2020-09-19 09:33 | disposition home or self-care (01) ==
LOC: WOUND 09:32
PROVIDERS: ATTEND Surgery
DX: T81.89XD Other complications of procedures, not elsewhere classified, subsequent encounter (principal); L05.91 Pilonidal cyst without abscess; Y83.8 Other surgical procedures as the cause of abnormal reaction of the patient, or of later complication, without mention of misadventure at the time of the procedure

== ENCOUNTER 2020-09-26 09:40 | Outpatient (CLI) | payer MEDICAID ==
[2020-09-26] MEDS ORDERED: LIDOCAINE (4%) 40 MG/ML TOPICAL SOLN 50 ML BOTTLE TP ONE (10:15)
== END 2020-09-26 09:41 | disposition home or self-care (01) ==
LOC: WOUND 09:40
PROVIDERS: ATTEND Surgery
DX: T81.89XD Other complications of procedures, not elsewhere classified, subsequent encounter (principal); L05.91 Pilonidal cyst without abscess; Y83.8 Other surgical procedures as the cause of abnormal reaction of the patient, or of later complication, without mention of misadventure at the time of the procedure
CPT/HCPCS: 99214; G0463

== ENCOUNTER 2020-10-17 08:30 | Outpatient (CLI) | payer MEDICAID ==
[2020-10-17] MEDS ORDERED: LIDOCAINE (4%) 40 MG/ML TOPICAL SOLN 50 ML BOTTLE TP SCH (09:00)
== END 2020-10-17 08:31 | disposition home or self-care (01) ==
LOC: WOUND 08:30
PROVIDERS: ATTEND Surgery
DX: T81.89XD Other complications of procedures, not elsewhere classified, subsequent encounter (principal); L05.91 Pilonidal cyst without abscess; Y83.8 Other surgical procedures as the cause of abnormal reaction of the patient, or of later complication, without mention of misadventure at the time of the procedure
CPT/HCPCS: 99214; G0463

== ENCOUNTER 2020-10-31 09:31 | Outpatient (CLI) | payer MEDICAID ==
[2020-10-31] MEDS ORDERED: LIDOCAINE (4%) 40 MG/ML TOPICAL SOLN 50 ML BOTTLE TP ONE (11:48)
== END 2020-10-31 09:32 | disposition home or self-care (01) ==
LOC: WOUND 09:31
PROVIDERS: ATTEND Surgery
DX: T81.89XD Other complications of procedures, not elsewhere classified, subsequent encounter (principal); L05.91 Pilonidal cyst without abscess; Y83.8 Other surgical procedures as the cause of abnormal reaction of the patient, or of later complication, without mention of misadventure at the time of the procedure
CPT/HCPCS: 99213; G0463

== ENCOUNTER 2021-06-22 20:43 | Emergency (ER) | payer OTHER, MEDICAID ==
[2021-06-22 20:59] VITALS: BP 126/82
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
== END 2021-06-23 02:28 | disposition home or self-care (01) ==
LOC: ED 20:43
DX: M62.830 Muscle spasm of back (principal); M62.838 Other muscle spasm; G44.209 Tension-type headache, unspecified, not intractable; V49.49XA Driver injured in collision with other motor vehicles in traffic accident, initial encounter; Y93.89 Activity, other specified; Y92.89 Other specified places as the place of occurrence of the external cause; Y99.8 Other external cause status
CPT/HCPCS: 99282